=== PATIENT | female | born 1960 | race Caucasian/White ===

== ENCOUNTER 2022-02-13 09:16 | Emergency (ER) | payer SELFPAY ==
[2022-02-13 09:28] VITALS: BP 133/63; PULSE 77; RESP 16; TEMP 36.7; O2SAT 98
--- NOTE | 2022-02-13 09:49 | ED.URI ---
HPI - URI/Sore Throat General Chief Complaint: Upper Respiratory Infection Stated Complaint: Coughing, Fever, Body Aches Time Seen by Provider: 02/13/22 09:50 Source: patient and RN notes reviewed Mode of arrival: ambulatory Limitations: no limitations History of Present Illness HPI Narrative: 61-year-old female presents to the [facility] with cough, fever, body aches, sore throat, sinus congestion for 2 days. Has taken [place], ibuprofen with minimal relief. Denies any medical or surgical history. Does not have a primary care provider Related Data Home Medications Medication Instructions Recorded Confirmed latanoprost 0.005 % eye drops 1 drp EACH EYE DAILY 02/13/22 02/13/22 Allergies Allergy/AdvReac Type Severity Reaction Status Date / Time No Known Allergies Allergy Unknown Unverified 02/13/22 10:04 Review of Systems Review of Systems: All systems reviewed & are unremarkable except as noted in HPI and below Constitutional: Constitutional: Reports as per HPI, Reports body ache(s), Reports chills, Reports fatigue, Denies fever(s) and Reports headache(s) Eyes: Eyes: Reports no additional eye complaints ENT: Reports as per HPI, Reports nasal congestion and Reports sore throat Cardiovascular: Cardiovascular: Reports no additional cardiovascular complaints Respiratory: Respiratory: Reports no additional respiratory complaints Gastrointestinal: Gastrointestinal: Reports no additional gastrointestinal complaints Musculoskeletal: Musculoskeletal: Reports no additional musculoskeletal complaints Integumentary/Breasts: Skin/Breast: Reports system reviewed and no additional complaints, except as docu Neurologic: Reports system reviewed and no additional complaints, except as documented Psychiatric: Psychiatric: Reports no additional psychiatric complaints Allergic/Immunologic: Allergic/Immunologic: Reports no additional allergic/immunologic complaints [facility] Past Medical History Medical History (Updated 02/13/22 @ 10:24 by Kaykay Murphy APRN) Patient denies medical problems Surgical History Surgical History (Updated 02/13/22 @ 10:24 by Kaykay Murphy APRN) No history of previous surgery Social History Social History (Updated 02/13/22 @ 10:24 by Kaykay Murphy APRN) Living arrangements: with family Gender identity (if verbalized by the patient): Female Comments At the time of my signature, I reviewed and agree with the nursing past medical, surgical, social, and family history. There is no relevant family history pertinent to the patient complaint. Exam Const: General: healthy appearing, no acute distress, alert and well nourished Nutritional Appearance: well nourished Orientation/consciousness: patient oriented x3 Limitations: no limitations HENMT: Head: normal to inspection Ears: external ears normal, TM's normal bilaterally and EAC's normal Face/Nose/Sinus: Normal external nose present, Normal nares present and Normal nasal mucous membranes and turbinates present Face and sinus: normal facial exam, sinuses nontender and face symmetric Mouth: Yes Normal oral and palatal mucosa present, Yes lip normal, Yes tongue normal, Yes oropharynx normal and Yes moist mucous membranes Throat: posterior oropharynx normal, tonsils normal, uvula midline and postnasal drainage Eyes: General: appearance normal, both eyes and all related structures Conjunctivae: conjunctivae normal Pupils: Equal, round and reactive pupils present Neck: Neck: normal visual inspection, no lymphadenopathy and no meningeal signs Chest: Chest palpation & inspection: normal inspection of the chest Resp: Effort & Inspection: normal respiratory effort and no use of accessory muscles Auscultation: clear to auscultation bilaterally, no crackles, no rales, no rhonchi and no wheezes Cardio: Rate: regular rate Rhythm: regular rhythm Skin: General skin exam: normal color Rashes: no rashes Wounds: no wounds Neuro: Gen
== END 2022-02-13 10:21 | disposition home or self-care (01) ==
PROVIDERS: Emergency Provider Nurse Practitioner
DX: U07.1 COVID-19 (principal); H40.9 Unspecified glaucoma
CPT/HCPCS: 87426; 87804; 99213; C9803; G0463

== ENCOUNTER 2023-12-16 10:31 | Emergency (ER) | payer MEDICARE, SELFPAY ==
--- NOTE | ~2023-12-16 | XR_ITS ---
XR foot LT min 3V Ordering provider: Genevieve Hartmann APRN History: . left great toe pain s/p trauma, visible swelling . Comparison: None. FINDINGS: BONES: Small bony fragment seen near to the base of the fifth metatarsal bone. Clinical evaluation fo r tenderness in the area advised. Calcaneal spur. Ossification of the insertion of the tendo Achilles. JOINT SPACES: Normal. No tarsal coalition. SOFT TISSUES: Normal. IMPRESSION: No definite acute osseous abnormality left foot. Small bony fragment near to the base of the fifth metatarsal bone. Clinical evaluation for tenderness advised Reviewed, dictated and finalized at location A. IMPRESSION: No definite acute osseous abnormality left foot. Small bony fragment near to the base of the fifth metatarsal bone. Clinical félix luation for tenderness advised
[2023-12-16 10:45] VITALS: BP 105/47; PULSE 68; RESP 18; TEMP 36.5; O2SAT 100
--- NOTE | 2023-12-16 10:45 | ED.EXTPRO ---
HPI - Extremity Problem General Chief complaint: Extremity Injury, Lower Stated complaint: Left Big Toe Pain Time Seen by Provider: 12/16/23 10:47 Source: patient, RN notes reviewed and old records reviewed Mode of arrival: ambulatory Limitations: no limitations History of Present Illness HPI Narrative: patient presents with complaints of left great toe pain. She reports that a couple of nights ago she stubbed the toe. She now has redness and swelling surrounding the nail. Pain is worse when she walks. She has not been taking anything for her symptoms. She denies other injury and trauma. She voices no other concerns or complaints at this time. She is observed ambulating with a steady gait. Related Data Home Medications Medication Instructions Recorded Confirmed latanoprost 0.005 % eye drops 1 drp EACH EYE DAILY 02/13/22 12/16/23 acetazolamide 250 mg tablet mg 12/16/23 brimonidine 0.2 % eye drops 2 drp EACH EYE DAILY 12/16/23 12/16/23 timolol maleate 0.5 % eye drops 1 drp EACH EYE BID 12/16/23 12/16/23 Allergies Allergy/AdvReac Type Severity Reaction Status Date / Time No Known Allergies Allergy Unknown Verified 12/16/23 10:43 Review of Systems Review of Systems: All systems reviewed & are unremarkable except as noted in HPI and below Constitutional: Constitutional: Reports no additional constitutional complaints ENT: Reports system reviewed and no additional complaints, except as documented Cardiovascular: Cardiovascular: Reports no additional cardiovascular complaints Respiratory: Respiratory: Reports no additional respiratory complaints Gastrointestinal: Gastrointestinal: Reports no additional gastrointestinal complaints Musculoskeletal: Musculoskeletal: Reports no additional musculoskeletal complaints and Reports as per HPI Integumentary/Breasts: Skin/Breast: Reports system reviewed and no additional complaints, except as docu and Reports as per HPI PMFSH Past Medical History Medical History Patient denies medical problems Surgical History Surgical History No history of previous surgery Social History Social History Living arrangements: with family Gender identity (if verbalized by the patient): Female Exam Const: General: cooperative, no acute distress, alert and awake Orientation/consciousness: oriented to person, oriented to place and oriented to time HENMT: Head: normal to inspection Resp: Effort & Inspection: normal respiratory effort and able to speak in complete sentences Auscultation: clear to auscultation bilaterally, no crackles, no rales, no rhonchi and no wheezes Cardio: Palpation: normal PMI Rate: regular rate Rhythm: regular rhythm Heart sounds: S1 normal heart sound present and S2 normal heart sound present Neuro: General: oriented to person, oriented to place and oriented to time Cranial nerves: Yes CN's II-XII intact bilaterally Extrem: Left lower extremity: normal capillary refill and foot Details: tenderness Location: of the great toe ( Base of great toe, and surrounding the nail), toes with normal ROM and warmth Location: of the great toe ( erythema and warmth surrounding the nail) Psych: Appearance: grossly normal Thought process: Normal thought process present Insight: Good insight present (Psych) Judgement: Good judgement present (Psych) Course Course Level of Care: Express Care Visit Vital Signs Vital signs: Vital Signs Temperature 97.7 F 12/16/23 10:45 Pulse Rate 68 12/16/23 10:45 Respiratory Rate 18 12/16/23 10:45 Blood Pressure 105/47 L 12/16/23 10:45 Pulse Oximetry 100 12/16/23 10:45 Oxygen Delivery Room Air 12/16/23 10:45 Temperature 97.7 F 12/16/23 10:46 Pulse Rate 68 12/16/23 10:46 Respiratory Rate 18 12/16/23 10:46 Blood Pressure 105/47 L
[2023-12-16 10:46] VITALS: BP 105/47; PULSE 68; RESP 18; TEMP 36.5; O2SAT 100
== END 2023-12-16 11:55 | disposition home or self-care (01) ==
PROVIDERS: Emergency Provider Nurse Practitioner Family; PCP Nurse Practitioner
DX: L60.0 Ingrowing nail (principal); S99.922A Unspecified injury of left foot, initial encounter; X58.XXXA Exposure to other specified factors, initial encounter
CPT/HCPCS: 73630; 99213; G0463

== ENCOUNTER 2024-04-26 09:56 | Emergency (ER) | payer MEDICARE, SELFPAY ==
--- NOTE | 2024-04-26 10:05 | ED_ITS ---
HPI - URI/Sore Throat General Chief Complaint: Upper Respiratory Infection Stated Complaint: sinus issues Time Seen by Provider: 04/26/24 10:05 Source: patient, RN notes reviewed and old records reviewed Mode of arrival: ambulatory Limitations: no limitations History of Present Illness HPI Narrative: 63-year-old female presents to the [facility] with with concerns of sinus congestion. Patient reports 4 days ago started with some ear fullness, discomfort. States that it turned into some postnasal drainage, sinus congestion. Has also been coughing. Patient reports taking Tylenol, Motrin, Mucinex and Sudafed. Denies fevers. Onset (ago): day(s) (4) Treatments prior to arrival: acetaminophen, ibuprofen and cold medicine Related Data Home Medications ?Medication ?Instructions ?Recorded ?Confirmed ?Last Taken ?Type latanoprost 0.005 % eye drops 1 drp EACH EYE DAILY 02/13/22 04/26/24 Unknown History acetazolamide 250 mg tablet mg 12/16/23 Unknown History brimonidine 0.2 % eye drops 2 drp EACH EYE DAILY 12/16/23 04/26/24 Unknown History timolol maleate 0.5 % eye drops 1 drp EACH EYE BID 12/16/23 04/26/24 Unknown History cyclobenzaprine 10 mg tablet mg 04/26/24 Unknown History Allergies Allergy/AdvReac Type Severity Reaction Status Date / Time No Known Allergies Allergy Unknown Verified 04/26/24 10:02 Review of Systems Review of Systems: All systems reviewed & are unremarkable except as noted in HPI and below Constitutional: Constitutional: Reports no additional constitutional complaints ENT: Reports as per HPI, Reports nasal congestion, Reports nasal discharge and Reports post nasal drip Cardiovascular: Cardiovascular: Reports no additional cardiovascular complaints, Denies chest pain and Denies dyspnea Respiratory: Respiratory: Reports as per HPI, Denies chest congestion, Reports cough and Denies dyspnea Musculoskeletal: Musculoskeletal: Reports no additional musculoskeletal complaints Integumentary/Breasts: Skin/Breast: Reports system reviewed and no additional complaints, except as docu PMFSH Past Medical History Medical History Patient denies medical problems Surgical History Surgical History No history of previous surgery Social History Social History Living arrangements: with family Gender identity (if verbalized by the patient): Female Comments At the time of my signature, I reviewed and agree with the nursing past medical, surgical, social, and family history. There is no relevant family history pertinent to the patient complaint. Exam Const: General: cooperative, healthy appearing, comfortable, no acute distress, well developed, alert and well nourished Nutritional Appearance: well nourished Orientation/consciousness: patient oriented x3 Limitations: no limitations HENMT: Head: normal to inspection Ears: hearing grossly normal bilaterally, external ears normal, TM's normal bilaterally, EAC's normal, mastoids normal and no periauricular adenopathy Face/Nose/Sinus: Normal external nose present, Normal nasal mucous membranes and turbinates present and Nasal discharge present clear bilateral Face and sinus: normal facial exam and face symmetric Mouth: Yes Normal oral and palatal mucosa present, Yes lip normal, Yes tongue normal and Yes moist mucous membranes Throat: posterior oropharynx normal, uvula midline, postnasal drainage and no uvular edema Eyes: General: appearance normal, both eyes and all related structures Alignment and Position: alignment normal Neck: Neck: normal visual inspection, full ROM, no lymphadenopathy and no meningeal signs Chest: Chest palpation & inspection: normal inspection of the chest Resp: Effort & Inspection: normal respiratory effort and able to speak in complete sentences Auscultation: clear to auscultation bilaterally, no crackles, no rales, no rhonchi and no wheezes Cardio: Rate: regular rate Skin: General skin exam: normal color and no rashes or lesions noted Neuro: General: patient oriented x3, gait normal, moves all extremities and no meningeal signs Cognition (Neuro): normal cognition Speech: normal speech Gait exam (Neuro): Normal gait present Extrem: General: normal to inspection, full ROM, capillary refill normal and normal gait Psych: Appearance: grossly normal and well kempt Mental Status: mental status grossly normal Speech and movement: Normal speech and movement present and Clear speech present Affect: normal affect Attitude: cooperative Course Course Level of Care: Express Care Visit Vital Signs Vital signs: Vital Signs Temperature 97.2 F L 04/26/24 10:06 Pulse Rate 82 04/26/24 10:06 Respiratory Rate 18 04/26/24 10:06 Blood Pressure 142/58 H 04/26/24 10:06 Pulse Oximetry 100 04/26/24 10:06 Oxygen Delivery Room Air 04/26/24 10:06 Temperature 97.2 F L 04/26/24 10:06 Pulse Rate 82 04/26/24 10:06 Respiratory Rate 18 04/26/24 10:06 Blood Pressure 142/58 H 04/26/24 10:06 Pulse Oximetry 100 04/26/24 10:06 Oxygen Delivery Room Air 04/26/24 10:06 Reviewed MDM - URI/Sore Throat MDM Narrative Medical decision making narrative: Patient sitting comfortably in exam room. Nontoxic, vitals stable. Patient presents with 4 day history of ear fullness, postnasal drainage, sinus congestion and a cough. No acute findings other than postnasal drainage noted on exam. Clear sinus drainage. Offered flu and COVID testing, patient declined Patient is appropriate for outpatient treatment of viral for sinusitis with close follow-up Discharge instructions reviewed with patient, as well as provided in writing per nursing staff. The instructions also include specific and strict return/GO TO THE ER as well as f/u information. All questions have been answered, and the patient deny any further questions with discharge and discharge plan. Some parts of this dictation were generated by voice recognition software and may contain typographical and/or grammatical inaccuracies. Differential Diagnosis Differential diagnosis: Likely upper respiratory infection, otitis media, sinusitis and viral infection Critical Care Time Critical Care Time Critical Care Time: No Discharge Plan Discharge Clinical Impression: PND (post-nasal drip) Sinusitis Qualifiers: Sinusitis location: unspecified location Chronicity: acute Recurrence: not specified as recurrent Qualified Code(s): J01.90 - Acute sinusitis, unspecified Patient Disposition: Home, Self-Care Condition: Stable Instructions: Antibiotic Form, Sinusitis (ED), Postnasal Drip (DC) Additional Instructions: Your symptoms are likely due to a viral illness, which is not treated with antibiotics. Typically viral infections last 7-10 days, can linger for couple of weeks. It is very important to treat your symptoms. Drink plenty of water, Gatorade, Pedialyte, ice pops or Jell-O. -Alternate Tylenol and Motrin per package directions for fever or pain. You can alternate every 4 hours -Antihistamine medication such as Zyrtec/Claritin/Dorita during the day can help improve symptoms. -doing daily nasal irrigations can help relieve pressure your sinuses. Things like a Neti pot -Use Flonase twice a day for 5 days then daily to help reduce the inflammation and dry up your sinuses. -You can also use Mucinex. Be sure to drink plenty of water with this medication at least 8 ounces with every dose and it is important to drink 8 to 10 glasses of water per day. Water is a natural decongestant -Eat and drink things that are easy to swallow, like tea or soup, or popsicles. -Oral rinses such as: Salt water gargles and/or may use topical anesthetic (eg. Chloraseptic spray) or lozenges to relieve dryness or throat pain). -Frequent hand washing or hand motor vehicle or caravan salesperson is one of the best ways to prevent spread of infection. -Using a vaporizer or humidifier at night will also help thin secretions and help with coughing up phlegm. -Follow up with primary care provider in 7-10 days if condition is not improving - For new or worsening symptoms go directly to the nearest ER Patient Language: Faroese Prescriptions: No Action cyclobenzaprine 10 mg tablet latanoprost 0.005 % Drops 1 drp EACH EYE DAILY acetazolamide 250 mg tablet brimonidine 0.2 % drops 2 drp EACH EYE DAILY timolol maleate 0.5 % drops 1 drp EACH EYE BID amoxicillin-pot clavulanate 875-125 mg tablet 1 tablet PO Q12H Qty: 20 0RF Follow-up/Referrals: Marcelo,MARCO Mccracken [Primary Care Provider] - 2 Weeks ([facility] care follow [facility] ) Time of Disposition: 10:26
[2024-04-26 10:06] VITALS: BP 142/58; PULSE 82; RESP 18; TEMP 36.2; O2SAT 100
--- OUTSIDE RECORDS SUMMARY | 2024-05-03 20:25 | XMS_ITS | Referral Summary ---
Author Organization [facility] Address Formerly [facility] [place] [address] Care Team Providers Care University Manager Name Role Phone Kiran Winn Primary Care Provider Encounters Date Type Department Care Team Description 04/18/2024 2:43 PM [facility] - 04/18/2024 5:17 PM [facility] Emergency [facility] Emergency Department [address] [place] [address] Abdominal pain (Primary Dx) Discharge Disposition: Discharge to home or self care from Last 3 Months Allergies No known active allergies Medications HYDROcodone-zack taminophen (NORCO) 5-325 mg per tabletIndicatio ns:Pain Take 1-2 tablets by mouth every 4 (four) hours as needed for pain (1 tablet for mild to moderate pain or 2 tablets for severe pain) Do not exceed 8 tablets/day. 6 tablet 12/14/2021 Active cyclobenzaprine (FLEXERIL) 10 mg tablet Take 1 tablet (10 mg total) by mouth 2 (two) times a day as needed for muscle spasms 20 tablet 04/18/2024 Active ketorolac (TORADOL) 10 mg tablet Take 1 tablet (10 mg total) by mouth every 6 (six) hours as needed for pain 20 tablet 04/18/2024 Active Social History Tobacco Use Types Packs/Day Years Used Date Smoking Tobacco: Never Assessed Personal Safety Answer Date Recorded Have you ever been in or are you currently in a harmful physical or emotional relationship or is someone making you feel afraid or unsafe? Denies 04/18/2024 Comments Unknown Sex and Gender Information Value Date Recorded Sex Assigned at Not on file Legal Sex Female 7:25 AM M[facility]STER Gender Identity Female 02/01/2018 12:16 PM CDT Sexual Orientation Not on file Last Filed Vital Signs Vital Sign Reading Time Taken Comments Blood Pressure 138/74 04/18/2024 11:46 AM MALTSTER Pulse 88 04/18/2024 11:46 AM [facility] Temperature 36.8 ??C (98.2 ??F) 04/18/2024 1 1:46 AM M[facility]STER Respiratory Rate 18 04/18/2024 11:4 6 AM [facility] Oxygen Saturation 100% 04/18/2024 11: 46 AM [facility] Inhaled Oxygen Concentration - - Weight 90.6 kg (199 lb 11.8 oz) 024 11:46 AM [facility] Height 170.2 cm (5' 7 ) 12/14/2021 9:32 AM CDT Body Mass Index 31.28 12/14/2021 9:32 AM CDT Plan of Treatment Not on file Procedures Procedure Name Priority Date/Time Associated Diagnosis Comments TROPONIN T HIGH-SENSITIVITY 4-HR Timed 04/18/2024 4:[address] CHEST PE ABDOMEN PELVIS W CONTRAST ED 04/18/2024 3:56 PM [facility] ECG 12-LEAD STAT 04/18/2024 3:22 PM [facility] TROPONIN T HIGH-SENSITIVITY 2-HOUR Timed 04/18/2024 3:20 PM [facility] URINALYSIS, MICROSCOPIC ONLY STAT 04/18/2024 12:02 PM [facility] URINE CULTURE STAT 04/18/2024 12:02 PM [facility] URINALYSIS AND REFLEX TO MICROSCOPIC AND CULTURE STAT 04/18/2024 12:02 PM [facility] TROPONIN T HIGH-SENSITIVITY SERIES (BASELINE, 2HR, 4HR, 6HR) STAT 04/18/2024 11:53 AM M[facility]STER EGFR STAT 04/18/2024 11:53 AM [facility] DIFFERENTIAL AUTO STAT 04/18/2024 11: 53 AM [facility] LIPASE STAT 04/18/2024 11:53 AM [facility] COMPREHENSIVE METABOLIC PANEL STAT 04/18/2024 11:53 AM [facility] CBC WITH AUTO DIFFERENTIAL STAT 04/18/2024 11:53 AM M[facility]STER from Last 3 Months Results * Troponin T high-sensitivity 4-hour (04/18/2024 4:24 PM MALTSTER) Trop T hs <6 <=14 ng/L Comment: Interpretive Data For further hscTnT resources including the diagnostic algorithm and an aid in interpretation, copy and paste this link: https://nrl.testcatalog.org/show/hsTrop Current Interpretive Data last revised 2020. Testing performed by: [address] [address] Trop T hs delta 0 ng/L ALAINA CHOW Comment:Testing performed by : [facility], [address] [place] [address]., [address] Trop T hs interp Insignificant ALAINA CHOW Comment:Testing performed by : [address] [address] Blood 04/18/2024 4:24 PM M[facility]STER 04/18/2024 4:31 PM M[facility]STER Andrew Sanches NP LAB BLOOD ORDERABLES Final Resul t ALAINA CHOW [address] [facility] Department [place] [address] * CT Chest PE (CTA) Abdomen Pelvis W Contrast (04/18/2024 3:56 PM MALTSTER) Anatomical Region Laterality Modality Body N/A Computed Tomogra phy 04/18/2024 4:17 PM M[facility]STER Narrative 04/18/2024 4:39 PM [facility] EXAM DESCRIPTION: CT CHEST PE (CTA) ABDOMEN PELVIS W CONTRAST REASON FOR STUDY: Abdominal pain, acute, nonlocalized ?? hx of hernias to RLQ region a few months ago. Pt reports for approx 1 week has been c/o RLQ pain that radiates down into R groin region. Pt reports last night noted pain has moved up to R flank/rib region. Endorsing nausea, denies vomiting. ? TECHNIQUE: CT angiogram of the chest with routine abdomen and pelvis performed with intravenous and ??without ??oral contrast using helical scanning technique with dynamic intravenous contrast injection. Reconstructed coronal and sagittal MPR images reviewed. All images stored on PACS. ??3D MIP images of the chest rendered on scanning unit and reviewed at time of interpretation. ?? Automated exposure control was used as a dose optimization technique for this examination. CONTRAST TYPE/DOSE: 100mL of IOVERSOL 350 MG IODINE/ML INTRAVENOUS SYRINGE ?? injected via ?? intravenous COMPARISON: CT of the chest dated 12/14/2021 FINDINGS: CHEST: No pulmonary embolism. ??No pneumothorax. ??No pleural effusions. ??No lobar. ??No pulmonary no suspicious pulmonary masses. ??Some platelike atelectasis postinflammatory calcifications are noted. ??No pathologic sized nodes of the chest. ??Postop changes of the cervical spine. ABDOMEN: Hypodense mass of the left hepatic lobe. ??This should represent a cyst based on Hounsfield units. ??No additional follow-up recommended. ??Remaining solid abdominal organs are essentially unremarkable. ??No free air, free fluid or pathologic sized nodes of the abdomen. PELVIS: Postop changes of the anterior aspect of the pelvis. ??Calcification noted. ?? Very small right groin hernia containing fat. ??Left groin hernia containing fat. ??Small periumbilical hernia containing fat. ??No free air, free fluid or pathologic sized nodes of the pelvis. ??No bowel obstruction. ??No appendicitis. Spondylosis of the spine. ??Superior endplate deformity of L5 that appears to be chronic. ?? IMPRESSION: No pulmonary embolism. No bowel obstruction or appendicitis. Very small right groin hernia containing fat. Left groin hernia containing fat. Small periumbilical hernia containing fat. ??Postoperative changes of the anterior aspect of the pelvis. THIS IS AN ELECTRONICALLY VERIFIED FINAL REPORT 04/18/2024 4:39 PM - Electronically signed by ??Mumtaz Severino M.D. JS: VINICIUS D: ??04/18/2024 4:39 PM T: ??04/18/2024 4:39 PM Report ID: [id number] Reading Location: ??[id number] Procedure Note YesilakeshiaMumtaz mason, DO - 04/18/2024 EXAM DESCRIPTION: CT CHEST PE (CTA) ABDOMEN PELVIS W CONTRAST REASON FOR STUDY: Abdominal pain, acute, nonlocalized hx of hernias to RLQ region a few months ago. Pt reports for approx 1 weekhas been c/o RLQ pain that radiates down into R groin region. Pt reports last night noted pain has moved up to R flank/rib region. Endorsing nausea,denies vomiting. TECHNIQUE: CT angiogram of the chest with routine abdomen and pelvisperformed with intravenous and without oral contrast using helical scanningtechnique with dynamic intravenous contrast injection. Reconstructed coronal and sagittal MPR images reviewed. All images stored on PACS. 3D MIP images ofthe chest rendered on scanning unit and reviewed at time of interpretation. Automated exposure control was used as a dose optimization technique forthis examination. CONTRAST TYPE/DOSE: 100mL of IOVERSOL 350 MG IODINE/ML INTRAVENOUS SYRINGE injected via intravenous COMPARISON: CT of the chest dated 12/14/2021 FINDINGS: CHEST: No pulmonary embolism. No pneumothorax. No pleural effusions. No lobar.No pulmonary no suspicious pulmonary masses. Some platelike atelectasis postinflammatory calcifications are noted. No pathologic sized nodes ofthe chest. Postop changes of the cervical spine. ABDOMEN: Hypodense mass of the left hepatic lobe. This should represent a cystbased on Hounsfield units. No additional follow-up recommended. Remainingsolid abdominal organs are essentially unremarkable. No free air, free fluid or pathologic sized nodes of the abdomen. PELVIS: Postop changes of the anterior aspect of the pelvis. Calcification noted. Very small right groin hernia containing fat. Left groin herniacontaining fat. Small periumbilical hernia containing fat. No free air, free fluidor pathologic sized nodes of the pelvis. No bowel obstruction. Noappendicitis. Spondylosis of the spine. Superior endplate deformity of L5 that appearsto be chronic. IMPRESSION: No pulmonary embolism. No bowel obstruction or appendicitis. Very small right groin hernia containing fat. Left groin herniacontaining fat. Small periumbilical hernia containing fat. Postoperative changes ofthe anterior aspect of the pelvis. THIS IS AN ELECTRONICALLY VERIFIED FINAL REPORT 04/18/2024 4:39 PM - Electronically signed by Mumtaz Severino M.D. JS: VINICIUS Report ID: [id number] Reading Location: [place] [address] Andrew Sanches NP IMG CT PROCEDURES Final Result * ECG 12 lead (04/18/2024 3:22 PM M[facility]STER) Ventricular Rate EKG/Min 68 BPM [facility] Atrial Rate 68 BPM [facility] ND-Interval (MSEC) 164 ms [facility] QRS-Interval (MSEC) 84 ms [facility] QT-Interval (MSEC) 396 ms [facility] QTc 421 ms [facility] P [place] 73 degrees [facility] R [place] 18 degrees [facility] T [place] 48 degrees [facility] Diagnosis Normal sinus rhythm Normal ECG No previous ECGs available Confirmed by SULTAN GLASS M.D. ([id number]) on 04/18/2024 6:34:23 PM [facility] 04/18/2024 3:22 PM MALTSTER 04/18/2024 6:34 PM M[facility]STER us Becky SIEGEL ECG ORDERABLES Final Result [facility] * Troponin T high-sensitivity 2-hour (04/18/2024 3:20 PM MALTSTER) Trop T hs <6 <=14 ng/L Comment: Interpretive Data For further hscTnT resources including the diagnostic algorithm and an aid in interpretation, copy and paste this link: https://nrl.testcatalog.org/show/hsTrop Current Interpretive Data last revised 2020. Testing performed by: [address] [address] Trop T hs delta See Comment ng/L ALAINA CHOW Comment: Inappropriate collection time to report a delta. Testing performed by: [address] [address] Trop T hs pct delta See Comment % ALAINA CHOW Comment: Inappropriate collection time to report a delta. Testing performed by: [address] [address] Trop T hs interp See Comment ALAINA CHOW Comment: Inappropriate collection time to report a delta. Testing performed by: [address] [address] Blood 04/18/2024 3:20 PM M[facility]STER 04/18/2024 3:29 PM M[facility]STER us Andrew Sanches NP LAB BLOOD ORDERABLES Final Resul t Performing Organization Address City/State/[facility] Co de Phone Number ALAINA [address] [facility] Department [place] [address] * (ABNORMAL) Urinalysis reflex to microscopic and culture Urine (04/18/2024 12:02 PM MALTSTER) Color, ur Straw Yellow Comment:Testing performed by : [address] [address] Clarity, ur Clear Clear ALAINA Comment:Testing performed by : [address] [address] Specific gravity, ur 1.010 1.003 - 1.030 ALAINA Comment:Testing performed by : [address] [address] pH, urine 6.5 ALAINA Comment: Interpretive Data ? Urine pH is affected by diet, medications, systemic acid-base disturbances, and renal tubular function. ??pH may affect urinary stone formation. ??For example, urine pH below 6.0 may help reduce the tendency for calcium phosphate stones and pH greater than 6.0 may reduce the tendency for uric acid stone formation. Source: [facility] Riskonnect Current Interpretive Data was last revised on 2017 Testing performed by: [address], [place]., [address] Protein, ur ql Negative Negative ALAINA Comment:Testing performed by : [address], [place]., [address] Glucose, ur ql Negative Negative ALAINA Comment:Testing performed by : [address], [place]., [address] Ketones, ur Negative Negative ALAINA Comment:Testing performed by : [address], [place]., [address] Bilirubin, ur Negative Negative ALAINA Comment:Testing performed by : [address], [place]., [address] Blood, ur Negative Negative ALAINA Comment:Testing performed by : [address], [place]., [address] Urobilinogen, ur <2.0 <2.0 mg/dL ALAINA Comment:Testing performed by : [address], [place]., [address] Nitrite, ur Negative Negative ALAINA Comment:Testing performed by : [address], [place]., [address] Leukocyte esterase, ur 2+(A) Negative ALAINA Comment:Testing performed by : [address] [address] UA reflex comment Reflex to microscopic UA will be performed. ALAINA Comment:Testing performed by : [address], [place]., [address] Urine 04/18/2024 12:0 2 PM M[facility]STER 04/18/2024 12:15 PM M[facility]STER us Andrew Sanches NP LAB MICROBIOLOGY - GENERAL ORDER CARMEN Final Result ALAINA [address] [facility] Department [place] [address] * (ABNORMAL) Urinalysis, microscopic only (04/18/2024 12:02 PM MALTSTER) WBC, ur 11-20(A) 0 - 5 /HPF Comment:Testing performed by : [address] [place]., [address] RBC, ur 0-2 0 - 2 /HPF ALAINA Comment:Testing performed by : [address] [address] Epithelial cells, squamous, ur >50(A) 0 - 5 /HPF ALAINA Comment:Testing performed by : [address] [address] Bacteria, ur Trace(A) ALAINA Comment:Testing performed by : [address] [address] Culture Reflex Comment Reflex to urine culture will be performed. ALAINA Comment:Testing performed by : [address] [address] Urine 04/18/2024 12:0 2 PM MALTSTER 04/18/2024 12:15 PM MALTSTER Andrew Sanches LAB URINE ORDERABLES Final Resul t Performing Organization Address [facility] de Phone Number [address] [place] [address] * Urine culture Urine (04/18/2024 12:02 PM MALTSTER) Report Final Report: Less than 100,000 colonies/mL (clinically insignificant growth based on current clinical standards) Comment:Testing performed by : [facility], [address] [facility] [place]., [address] Organism (CLINICALLY INSIGNIFICANT GROWTH ALAINA Urine 04/18/2024 12:0 2 PM MALTSTER 04/18/2024 4:10 PM M[facility]STER Narrative ALAINA - 04/19/2024 6:41 PM MALTSTER Urine culture reflexed based upon urinalysis results. Testing performed by [facility] Microbiology Laboratory ([phone]) Andrew Sanches LAB MICROBIOLOGY - GENERAL ORDER CARMEN Final Result Performing Organization Address City/[facility] Co de Phone Number [address] [place] [address] * Troponin T high-sensitivity series (baseline, 2hr, 4hr, 6hr) (04/18/2024 11:53 AM MALTSTER) Trop T hs 6 <=14 ng/L Comment: Interpretive Data For further hscTnT resources including the diagnostic algorithm and an aid in interpretation, copy and paste this link: https://nrl.testcatalog.org/show/hsTrop Current Interpretive Data last revised 2020. Testing performed by: [facility], [address] [place] [address]., [address] Blood 04/18/2024 11:5 3 AM MALTSTER 04/18/2024 12:15 PM MALTSTER Andrew Sanches NP LAB BLOOD ORDERABLES Final Resul t [facility] [address] [facility] Department [place] [address] * eGFR (04/18/2024 11:53 AM MALTSTER) Pathologist [facility] eGFR >90 >=60 mL/min/1. 73 m2 Comment: Interpretive Data Reference Interval Normal ?>/= 90 mL/min/1.73m2 Mildly decreased* ? 60 - 89 mL/min/1.73m2 Mildly to moderately decreased ?45 - 59 mL/min/1.73m2 Moderately to severely decreased ??30 - 44 mL/min/1.73m2 Severely decreased ?15 - 29 mL/min/1.73m2 Kidney Failure ?< 15 ??mL/min/1.73m2 *Relative to young adult level Estimated glomerular filtration rate is determined by the 2020 CKD-EPI equation recommended by the National Kidney Foundation (A Unifying Approach to GFR Estimation: Recommendations of the NKF-ASK Task Force on Reassessing the Inclusion of Race in Diagnosing Kidney Disease, JASN 2020). The CKD-EPI equation should not be used for patients with unstable renal function and has not been validated in children and those over 70. Current interpretive data was last reviewed 2021. Testing performed by: [address] [address] Blood 04/18/2024 11:5 3 AM MALTSTER 04/18/2024 12:15 PM MALTSTER us Andrew Sanches NP LAB BLOOD ORDERABLES Final Resul t ALAINA [address] [facility] Department [place] [address] * Differential, auto (04/18/2024 11:53 AM MALTSTER) Neutrophil abs 4.8 1.5 - 6.5 K/cumm Comment:Testing performed by : [address] [address] Imm gran abs 0.1 0.0 - 0.1 K/cumm ALAINA Comment:Testing performed by : [address] [address] Lymphocyte abs 2.4 0.8 - 3.3 K/cumm ALAINA Comment:Testing performed by : [address] [address] Monocyte abs 0.7 0.2 - 0.8 K/cumm ALAINA Comment:Testing performed by : [address] [address] Eosinophil abs 0.2 0.0 - 0.5 K/cumm ALAINA Comment:Testing performed by : [address] [address] Basophil abs 0.1 0.0 - 0.1 K/cumm ALAINA Comment:Testing performed by : [address] [address] Neutrophil pct 58.7 % ALAINA Comment: Interpretive Data Percent cell count reference ranges are not reported, since discordance with absolute values may lead to misinterpretation of CBC data. Current Interpretive Data was last revised on 2017. Testing performed by: [address] [address] Imm gran pct 0.6 % [facility] Comment: Interpretive Data Percent cell count reference ranges are not reported, since discordance with absolute values may lead to misinterpretation of CBC data. Current Interpretive Data was last revised on 2017. Testing performed by: [address] [address] Lymphocyte pct 28.8 % [facility] Comment: Interpretive Data Percent cell count reference ranges are not reported, since discordance with absolute values may lead to misinterpretation of CBC data. Current Interpretive Data was last revised on 2017. Testing performed by: [address] [address] Monocyte pct 8.6 % [facility] Comment: Interpretive Data Percent cell count reference ranges are not reported, since discordance with absolute values may lead to misinterpretation of CBC data. Current Interpretive Data was last revised on 2017. Testing performed by: [address] [address] Eosinophil pct 2.6 % [facility] Comment: Interpretive Data Percent cell count reference ranges are not reported, since discordance with absolute values may lead to misinterpretation of CBC data. Current Interpretive Data was last revised on 2017. Testing performed by: [address] [address] Basophil pct 0.7 % [facility] Comment: Interpretive Data Percent cell count reference ranges are not reported, since discordance with absolute values may lead to misinterpretation of CBC data. Current Interpretive Data was last revised on 2017. Testing performed by: [address] [address] Blood 04/18/2024 11:5 3 AM MALTSTER 04/18/2024 12:15 PM MALTSTER us Andrew Sanches NP LAB BLOOD ORDERABLES Final Resul t ALAINA [address] [facility] [place] [address] * CBC with auto differential (04/18/2024 11:53 AM MALTSTER) [facility] WBC 8.2 3.8 - 9.9 K/cumm Comment:Testing performed by : [address] [address] Hgb 13.5 11.9 - 15.5 g/dL ALAINA Comment:Testing performed by : [address], [address] Hct 40.8 35.6 - 45.5 % ALAINA Comment:Testing performed by : [address], [address] Plt 307 150 - 400 K/cumm ALAINA Comment:Testing performed by : [address] [address] MPV 10.0 9.1 - 12.3 fL ALAINA Comment:Testing performed by : [address], [address] RBC 4.39 3.90 - 5.20 M/cumm ALAINA Comment:Testing performed by : [address] [address] MCV 92.9 81.3 - 96.4 fL ALAINA Comment:Testing performed by : [address] [address] MCH 30.8 27.1 - 33.3 pg ALAINA Comment:Testing performed by : [address] [address] MCHC 33.1 32.3 - 35.7 g/dL ALAINA Comment:Testing performed by : [address], [address] RDW CV 12.6 11.1 - 14.9 % ALAINA Comment:Testing performed by : [address] [address] RDW SD 43.2 35.7 - 48.1 fL ALAINA Comment:Testing performed by : [address], [address] NRBC abs 0.00 0.00 - 0.01 K/cumm ALAINA Comment:Testing performed by : [address] [address] Blood (Blood, Venous) 04/18/2024 11:53 AM MALTSTER 04/18/2024 12:15 PM MALTSTER Andrew Sanches LAB BLOOD ORDERABLES Final Resul t Performing Organization Address [facility] de Phone Number [address] [address] * Lipase (04/18/2024 11:53 AM MALTSTER) [facility] Lipase 16 10 - 99 Units/L Comment:Testing performed by : [address] [address] Blood (Blood, Venous) 04/18/2024 11:53 AM MALTSTER 04/18/2024 12:15 PM MALTSTER Andrew Sanches LAB BLOOD ORDERABLES Final Resul t Performing Organization Address [facility] de Phone Number [address] [address] * (ABNORMAL) Comprehensive metabolic panel (04/18/2024 11:53 AM MALTSTER) [facility] Sodium 140 135 - 145 mmol/L Comment:Testing performed by : [address] [address] Potassium, pl 4.0 3.3 - 4.9 mmol/L ALAINA Comment:Testing performed by : [address] [address] Chloride 103 97 - 110 mmol/L ALAINA Comment:Testing performed by : [address] [address] CO2 27 22 - 32 mmol/L ALAINA Comment:Testing performed by : [address] [address] Anion gap 10 2 - 15 mmol/L ALAINA Comment:Testing performed by : [address] [address] BUN 15 6 - 25 mg/dL ALAINA Comment:Testing performed by : [address] [address] Creatinine 0.50(L) 0.60 - 1.10 mg/dL ALAINA Comment:Testing performed by : [address] [address] Glucose 95 70 - 199 mg/dL ALAINA Comment: Interpretive Data Fasting glucose >/= 126 mg/dl is diagnostic for diabetes. ?? Fasting is defined as no caloric intake for at least 8 hours. Fasting glucose between 100 mg/dl to 125 mg/dl is diagnostic of prediabetes. In a patient with classic symptoms of hyperglycemia or hyperglycemic crisis, a random glucose >/= 200 mg/dl is diagnostic for diabetes. In the absence of unequivocal hyperglycemia, results should be confirmed by repeat testing. The classification and Diagnosis of Diabetes Diabetes Care 202; 46: S19-S40. Current interpretive data was last revised 2022. Testing performed by: [address] [address] Calcium 9.4 8.5 - 10.3 mg/dL ALAINA Comment:Testing performed by : [address] [address] Bilirubin, total 0.3 0.1 - 1.2 mg/dL ALAINA Comment:Testing performed by : [address] [address] Protein, pl 6.7 6.5 - 8.5 g/dL ALAINA Comment:Testing performed by : [address] [address] Albumin 4.0 3.5 - 5.0 g/dL ALAINA Comment:Testing performed by : [address] [address] Alk phos 71 40 - 130 Units/L ALAINA Comment:Testing performed by : [address], [address] ALT 13 7 - 45 Units/L ALAINA Comment:Testing performed by : [facility], [address] [place] [address]., [address] AST 16 10 - 45 Units/L ALAINA CHOW Comment:Testing performed by : [facility], [address] [place] [address]., [address] Blood (Blood, Venous) 04/18/2024 11:53 AM MALTSTER 04/18/2024 12:15 PM MALTSTER Andrew Sanches NP LAB BLOOD ORDERABLES Final Resul t ALAINA CHOW [address] [facility] Department [place] [address] from Last 3 Months Insurance [employer] MED[employer]ARE GOLD [employer] MED[employer] GOLD Care Teams University Manager Relationship Specialty Start Date End Date Kiran Winn DO [address] [place] [address] PCP - General Family Medicine 02/01/18
--- OUTSIDE RECORDS SUMMARY | 2024-05-03 20:25 | XMS_ITS | Clinical Summary ---
Author Organization [facility] Address [facility] [place] [address] Care Team Providers Care Shingle Weaver Name Role Phone Kiran Winn Primary Care Provider Allergies No known active allergies Medications HYDROcodone-zack [...] needed for pain 20 tablet 04/18/2024 Active Encounters Date Type Department Care Team Description 04/18/2024 2:43 PM STRAW BOSS - 04/18/2024 5:17 PM [facility] Emergency [facility] Emergency Department [facility] [place], [place] [id number] Abdominal pain (Primary Dx) Discharge Disposition: Discharge to home or self care from Last 3 Months Social History Tobacco Use Types Packs/Day Years [...] on file Legal Sex Female 7:25 AM STRAW BOSS Gender Identity Female 02/01/2018 12:16 PM CDT Sexual Orientation Not on file Obstetrics History Last Filed Vital Signs Vital Sign Reading Time Taken Comments Blood Pressure 138/74 04/18/2024 11:46 AM STR[facility] BOSS Pulse 88 04/18/2024 11:46 AM STR[facility] BOSS Temperature 36.8 ??C (98.2 ??F) 04/18/2024 1 1:46 AM STRAW BOSS Respiratory Rate 18 04/18/2024 11:4 6 AM STRAW BOSS Oxygen Saturation 100% 04/18/2024 11: 46 AM STR[facility] BOSS Inhaled Oxygen Concentration - - Weight 90.6 kg (199 lb 11.8 oz) 024 11:46 AM STRAW BOSS Height 170.2 cm (5' 7 ) 12/14/2021 9:32 AM CDT Body Mass Index 31.28 12/14/2021 9:32 AM CDT Plan of Treatment Health Maintenance Due Date Last Done Comments Cervical Cancer Screening 1960 Colon Cancer Screening-Colonoscopy 1958 Depression Screening 1958 Fall Risk Assessment 1960 Hepatitis C Screening 1960 DTaP/Tdap/Td Vaccine (1 - Tdap) 1969 Hepatitis B Screening 1976 Zoster Vaccine (1 of 2) 2008 Breast Cancer Screening-Mammogram 05/05/2023 05/05/2022, 05/05/2022, 11/02/2018, Additional history exists Pneumococcal vaccine 65+ (1 of 1 - PCV) 10/02/2023 Well Visit 65+ 10/02/2023 Influenza Vaccine (#1) 2023 Osteoporosis Screening-Bone Density Scan 05/05/2024 05/05/2022 Procedures Procedure Name Priority Date/Time Associated Diagnosis Comments TROPONIN T HIGH-SENSITIVITY 4-HR Timed 04/18/2024 4:[address] CHEST PE ABDOMEN PELVIS W CONTRAST ED 04/18/2024 3:56 PM STRAW BOSS ECG 12-LEAD STAT 04/18/2024 3:22 PM [facility]OSS TROPONIN T HIGH-SENSITIVITY 2-HOUR Timed 04/18/2024 3:20 PM [facility] URINALYSIS, MICROSCOPIC ONLY STAT 04/18/2024 12:02 PM [facility] URINE CULTURE STAT 04/18/2024 12:02 PM [facility] URINALYSIS AND REFLEX TO MICROSCOPIC AND CULTURE STAT 04/18/2024 12:02 PM [facility] TROPONIN T HIGH-SENSITIVITY SERIES (BASELINE, 2HR, 4HR, 6HR) STAT 04/18/2024 11:53 AM STRAW BOSS EGFR STAT 04/18/2024 11:53 AM [facility] BOSS DIFFERENTIAL AUTO STAT 04/18/2024 11: 53 AM STR[facility] BOSS LIPASE STAT 04/18/2024 11:53 AM [facility] BOSS COMPREHENSIVE METABOLIC PANEL STAT 04/18/2024 11:53 AM STRAW BOSS CBC WITH AUTO DIFFERENTIAL STAT 04/18/2024 11:53 AM STRAW BOSS from Last 3 Months Results * Troponin T high-sensitivity 4-hour (04/18/2024 4:24 PM STRAW BOSS) Trop T hs <6 <=14 ng/L Comment: Interpretive Data For further hscTnT resources including the diagnostic algorithm and an aid in interpretation, copy and paste this link: https://nrl.testcatalog.org/show/hsTrop Current Interpretive Data last revised 2020. Testing performed by: [address] [address] Trop T hs delta 0 ng/L ALAINA CHOW Comment:Testing performed by : [address] [address] Trop T hs interp Insignificant ALAINA CHOW Comment:Testing performed by : [address] [address] Blood 04/18/2024 4:24 PM STRAW BOSS 04/18/2024 4:31 PM STRAW BOSS us Andrew Sanches NP LAB BLOOD ORDERABLES Final Resul t ALAINA MH [address] [facility] Department [place] [address] * CT Chest PE (CTA) Abdomen Pelvis W Contrast (04/18/2024 3:56 PM STRAW BOSS) Anatomical Region Laterality Modality Body N/A Computed Tomogra phy 04/18/2024 4:17 PM STRAW BOSS Narrative 04/18/2024 4:39 PM STRAW BOSS EXAM DESCRIPTION: CT CHEST PE (CTA) ABDOMEN [...] PM T: ??04/18/2024 4:39 PM Report ID: [id number] Reading Location: ??[id number] Procedure Note Mumtaz Severino, DO - 04/18/2024 EXAM DESCRIPTION: CT CHEST [...] Mumtaz Severino M.D. JS: VINICIUS Report ID: [id number] Reading Location: [place] [address] Andrew Sanches NP IMG CT PROCEDURES Final Result * ECG 12 lead (04/18/2024 3:22 PM STRAW BOSS) Ventricular Rate EKG/Min 68 BPM [facility] Atrial Rate 68 BPM [facility] MN-Interval (MSEC) 164 ms [facility] QRS-Interval (MSEC) 84 ms [facility] QT-Interval (MSEC) 396 ms [facility] QTc 421 ms [facility] P [place] 73 degrees [facility] R [place] 18 degrees [facility] T [place] 48 degrees [facility] Diagnosis Normal sinus rhythm Normal ECG No previous ECGs available Confirmed by SULTAN GLASS M.D. ([id number]) on 04/18/2024 6:34:23 PM [facility] 04/18/2024 3:22 PM STR[facility] BOSS 04/18/2024 6:34 PM STR[facility] BOSS us Becky Waterman PA ECG ORDERABLES Final Result [facility] * Troponin T high-sensitivity 2-hour (04/18/2024 3:20 PM STRAW BOSS) Trop T hs <6 <=14 ng/L Comment: Interpretive Data For further hscTnT resources including the diagnostic algorithm and an aid in interpretation, copy and paste this link: https://nrl.testcatalog.org/show/hsTrop Current Interpretive Data last revised 2020. Testing performed by: [address] [address] Trop T hs delta See Comment ng/L ALAINA CHOW Comment: Inappropriate collection time to report a delta. Testing performed by: [address] [address] Trop T hs pct delta See Comment % ALAINA Comment: Inappropriate collection time to report a delta. Testing performed by: [address] [address] Trop T hs interp See Comment ALAINA Comment: Inappropriate collection time to report a delta. Testing performed by: [address] [address] Blood 04/18/2024 3:20 PM [facility] 04/18/2024 3:29 PM STR[facility]OSS us Andrew Sanches NP LAB BLOOD ORDERABLES Final Resul t ALAINA [address] [facility] Department [place] [address] * (ABNORMAL) Urinalysis reflex to microscopic and culture Urine (04/18/2024 12:02 PM STRAW BOSS) Color, ur Straw Yellow Comment:Testing performed by : [address] [address] Clarity, ur Clear Clear ALAINA Comment:Testing performed by : [address] [address] Specific gravity, ur 1.010 1.003 - 1.030 ALAINA Comment:Testing performed by : [address], [place]., [address] pH, urine 6.5 ALAINA Comment: Interpretive Data ? Urine pH is affected by diet, medications, systemic acid-base disturbances, and renal tubular function. ??pH may affect urinary stone formation. ??For example, urine pH below 6.0 may help reduce the tendency for calcium phosphate stones and pH greater than 6.0 may reduce the tendency for uric acid stone formation. Source: [facility] [place] Current Interpretive Data was last revised on 2017 Testing performed by: [address] [address] Protein, ur ql Negative Negative ALAINA Comment:Testing performed by : [address] [address] Glucose, ur ql Negative Negative ALAINA Comment:Testing performed by : [address] [address] Ketones, ur Negative Negative ALAINA Comment:Testing performed by : [address] [address] Bilirubin, ur Negative Negative ALAINA Comment:Testing performed by : [address] [address] Blood, ur Negative Negative ALAINA Comment:Testing performed by : [address] [address] Urobilinogen, ur <2.0 <2.0 mg/dL ALAINA Comment:Testing performed by : [address] [address] Nitrite, ur Negative Negative ALAINA Comment:Testing performed by : [address] [address] Leukocyte esterase, ur 2+(A) Negative ALAINA Comment:Testing performed by : [address] [address] UA reflex comment Reflex to microscopic UA will be performed. ALAINA Comment:Testing performed by : [address] [address] Urine 04/18/2024 12:0 2 PM STR[facility] BOSS 04/18/2024 12:15 PM STR[facility]OSS Andrew Sanches NP LAB MICROBIOLOGY - GENERAL ORDER CARMEN Final Result Performing Organization Address [facility] Co de Phone Number ALAINA [address] [place] [address] * (ABNORMAL) Urinalysis, microscopic only (04/18/2024 12:02 PM STRAW BOSS) WBC, ur 11-20(A) 0 - 5 /HPF Comment:Testing performed by : [address] [address] RBC, ur 0-2 0 - 2 /HPF ALAINA Comment:Testing performed by : [address] [address] Epithelial cells, squamous, ur >50(A) 0 - 5 /HPF ALAINA Comment:Testing performed by : [address] [address] Bacteria, ur Trace(A) ALAINA Comment:Testing performed by : [address] [address] Culture Reflex Comment Reflex to urine culture will be performed. ALAINA Comment:Testing performed by : [address] [address] Urine 04/18/2024 12:0 2 PM STR[facility] BOSS 04/18/2024 12:15 PM [facility]OSS Andrew Sanches NP LAB URINE ORDERABLES Final Resul t Performing Organization Address [facility] Co de Phone Number ALAINA [facility] [place] [address] * Urine culture Urine (04/18/2024 12:02 PM STRAW BOSS) Report Final Report: Less than 100,000 colonies/mL (clinically insignificant growth based on current clinical standards) Comment:Testing performed by : [facility], [address] [place]., [address] Organism (CLINICALLY INSIGNIFICANT GROWTH ALAINA Urine 04/18/2024 12:0 2 PM STRAW BOSS 04/18/2024 4:10 PM STR[facility] BOSS Narrative ALAINA - 04/19/2024 6:41 PM STRAW BOSS Urine culture reflexed based upon urinalysis results. Testing performed by [facility] Microbiology Laboratory ([phone]) Andrew Sanches LAB MICROBIOLOGY - GENERAL ORDER CARMEN Final Result Performing Organization Address [facility] de Phone Number LISANDRO[address] [place] [address] * Troponin T high-sensitivity series (baseline, 2hr, 4hr, 6hr) (04/18/2024 11:53 AM STRAW BOSS) Pathologist [facility] Trop T hs 6 <=14 ng/L Comment: Interpretive Data For further hscTnT resources including the diagnostic algorithm and an aid in interpretation, copy and paste this link: https://nrl.testcatalog.org/show/hsTrop Current Interpretive Data last revised 2020. Testing performed by: [facility], [address] [place] [address]., [address] Blood 04/18/2024 11:5 3 AM STRAW BOSS 04/18/2024 12:15 PM STRAW BOSS Andrew Sanches LAB BLOOD ORDERABLES Final Resul t Performing Organization Address [facility] Co de Phone Number [address] [place] [address] * eGFR (04/18/2024 11:53 AM STRAW BOSS) [facility] eGFR >90 >=60 mL/min/1. 73 m2 Comment: [...] was last reviewed 2021. Testing performed by: [address] [address] Blood 04/18/2024 11:5 3 AM STRAW BOSS 04/18/2024 12:15 PM STRAW BOSS us Andrew Sanches NP LAB BLOOD ORDERABLES Final Resul t ALAINA [address] [facility] Department [place] [address] * Differential, auto (04/18/2024 11:53 AM STRAW BOSS) Neutrophil abs 4.8 1.5 - 6.5 K/cumm Comment:Testing performed by : [address] [address] Imm gran abs 0.1 0.0 - 0.1 K/cumm ALAINA CHOW Comment:Testing performed by : [address] [address] Lymphocyte abs 2.4 0.8 - 3.3 K/cumm ALAINA CHOW Comment:Testing performed by : [address] [address] Monocyte abs 0.7 0.2 - 0.8 K/cumm ALAINA Comment:Testing performed by : [address] [address] Eosinophil abs 0.2 0.0 - 0.5 K/cumm [facility] Comment:Testing performed by : [address], [place]., [address] Basophil abs 0.1 0.0 - 0.1 K/cumm [facility] Comment:Testing performed by : [address] [address] Neutrophil pct 58.7 % [facility] Comment: Interpretive Data Percent cell count reference ranges are not reported, since discordance with absolute values may lead to misinterpretation of CBC data. Current Interpretive Data was last revised on 2017. Testing performed by: [address] [address] Imm gran pct 0.6 % [facility] Comment: Interpretive Data Percent cell count reference ranges are not reported, since discordance with absolute values may lead to misinterpretation of CBC data. Current Interpretive Data was last revised on 2017. Testing performed by: [address] [address] Lymphocyte pct 28.8 % [facility] Comment: Interpretive Data Percent cell count reference ranges are not reported, since discordance with absolute values may lead to misinterpretation of CBC data. Current Interpretive Data was last revised on 2017. Testing performed by: [address] [address] Monocyte pct 8.6 % [facility] Comment: Interpretive Data Percent cell count reference ranges are not reported, since discordance with absolute values may lead to misinterpretation of CBC data. Current Interpretive Data was last revised on 2017. Testing performed by: [address] [address] Eosinophil pct 2.6 % [facility] Comment: Interpretive Data Percent cell count reference ranges are not reported, since discordance with absolute values may lead to misinterpretation of CBC data. Current Interpretive Data was last revised on 2017. Testing performed by: [address] [address] Basophil pct 0.7 % ALAINA CHOW Comment: Interpretive Data Percent cell count reference ranges are not reported, since discordance with absolute values may lead to misinterpretation of CBC data. Current Interpretive Data was last revised on 2017. Testing performed by: [address] [address] Blood 04/18/2024 11:5 3 AM STRAW BOSS 04/18/2024 12:15 PM STRAW BOSS us Andrew Sanches NP LAB BLOOD ORDERABLES Final Resul t ALAINA CHOW [address] [place] [address] Department [place] [address] * CBC with auto differential (04/18/2024 11:53 AM STRAW BOSS) WBC 8.2 3.8 - 9.9 K/cumm Comment:Testing performed by : [address] [address] Hgb 13.5 11.9 - 15.5 g/dL ALAINA CHOW Comment:Testing performed by : [address] [address] Hct 40.8 35.6 - 45.5 % ALAINA CHOW Comment:Testing performed by : [address] [address] Plt 307 150 - 400 K/cumm ALAINA CHOW Comment:Testing performed by : [address] [address] MPV 10.0 9.1 - 12.3 fL ALAINA CHOW Comment:Testing performed by : [address] [address] RBC 4.39 3.90 - 5.20 M/cumm ALAINA CHOW Comment:Testing performed by : [address] [address] MCV 92.9 81.3 - 96.4 fL ALAINA CHOW Comment:Testing performed by : [address] [address] MCH 30.8 27.1 - 33.3 pg ALAINA CHOW Comment:Testing performed by : [address] [address] MCHC 33.1 32.3 - 35.7 g/dL ALAINA CHOW Comment:Testing performed by : [address], [address] RDW CV 12.6 11.1 - 14.9 % ALAINA CHOW Comment:Testing performed by : [address], [address] RDW SD 43.2 35.7 - 48.1 fL ALAINA CHOW Comment:Testing performed by : [address], [address] NRBC abs 0.00 0.00 - 0.01 K/cumm ALAINA CHOW Comment:Testing performed by : [address], [address] Blood (Blood, Venous) 04/18/2024 11:53 AM STRAW BOSS 04/18/2024 12:15 PM STRAW BOSS Andrew Sanches NP LAB BLOOD ORDERABLES Final Resul t Performing Organization Address [facility] Co de Phone Number [address] [place] [address] * Lipase (04/18/2024 11:53 AM STRAW BOSS) Lipase 16 10 - 99 Units/L Comment:Testing performed by : [address], [address] Blood (Blood, Venous) 04/18/2024 11:53 AM STRAW BOSS 04/18/2024 12:15 PM STRAW BOSS Andrew Sanches NP LAB BLOOD ORDERABLES Final Resul t Performing Organization Address City[facility] Co de Phone Number [address] [place] [address] * (ABNORMAL) Comprehensive metabolic panel (04/18/2024 11:53 AM STRAW BOSS) Sodium 140 135 - 145 mmol/L Comment:Testing performed by : [address] [address] Potassium, pl 4.0 3.3 - 4.9 mmol/L ALAINA Comment:Testing performed by : [address] [address] Chloride 103 97 - 110 mmol/L [facility] Comment:Testing performed by : [address], [place]., [address] CO2 27 22 - 32 mmol/L [facility] Comment:Testing performed by : [address] [address] Anion gap 10 2 - 15 mmol/L [facility] Comment:Testing performed by : [address], [place]., [address] BUN 15 6 - 25 mg/dL [facility] Comment:Testing performed by : [address] [address] Creatinine 0.50(L) 0.60 - 1.10 mg/dL [facility] Comment:Testing performed by : [address] [address] Glucose 95 70 - 199 mg/dL [facility] Comment: Interpretive Data Fasting glucose >/= 126 [...] was last revised 2022. Testing performed by: [address] [address] Calcium 9.4 8.5 - 10.3 mg/dL [facility] Comment:Testing performed by : [address] [address] Bilirubin, total 0.3 0.1 - 1.2 mg/dL ALAINA Comment:Testing performed by : [address] [address] Protein, pl 6.7 6.5 - 8.5 g/dL ALAINA Comment:Testing performed by : [address] [address] Albumin 4.0 3.5 - 5.0 g/dL ALAINA Comment:Testing performed by : [address] [address] Alk phos 71 40 - 130 Units/L ALAINA Comment:Testing performed by : [address] [address] ALT 13 7 - 45 Units/L ALAINA Comment:Testing performed by : [address] [address] AST 16 10 - 45 Units/L ALAINA Comment:Testing performed by : [address] [address] Blood (Blood, Venous) 04/18/2024 11:53 AM STRAW BOSS 04/18/2024 12:15 PM STRAW BOSS Andrew Sanches NP LAB BLOOD ORDERABLES Final Resul t ALAINA [address] [facility] Department of Laboratories [place], [place] [id number] from Last 3 Months Insurance T[employer] MEDICARE GOLD [employer] MEDICARE GOLD Care Teams Shingle Weaver Relationship Specialty Start Date End Date Kiran Winn [place] [address] [place] [address] PCP - General Family Medicine 02/01/18
--- OUTSIDE RECORDS SUMMARY | 2024-05-03 20:26 | XMS_ITS | Encounter Summary ---
Author Organization [facility] Address [address] [place] [address] Care Team Providers Care Neurologist Name Role Phone Kiran Winn DO Primary Care Provider Encounter Details Date Type Department Care Team (Late st Contact Info) Description 06/30/2023 External Device Data [facility] ABSTRACTION Provider, Abstract NO ADDRESS ON FILE Social History Tobacco Use Types Packs/Day Years Used Date Smoking Tobacco: Never Smokeless Tobacco: Never Alcohol Use Standard Drinks/Week Comments No 0 (1 standard drink = 0.6 oz pur e alcohol) Sex and Gender Information Value Date Recorded Sex Assigned at Not on file Gender Identity Not on file Sexual Orientation Not on file documented as of this encounter Plan of Treatment Not on file documented as of this encounter Visit Diagnoses Not on filedocumented in this encounter Care Teams Neurologist Relationship Specialty Start Date End Date Kiran Winn DO [address] [place] [address] PCP - General Family Practice 07/15/16 documented as of this encounter
--- OUTSIDE RECORDS SUMMARY | 2024-05-03 20:26 | XMS_ITS | Encounter Summary ---
Author Organization [facility] Address [address] [place] [address] Care Team Providers Care Manager Plan Name Role Phone Kiran Winn DO Primary Care Provider Encounter Details Date Type Department Care Team (Late st Contact Info) Description 04/21/2023 External Device Data STL ABSTRACTION Provider, Abstract [...] on filedocumented in this encounter Care Teams Manager Plan Relationship Specialty Start Date End Date Kiran Winn DO [address] [place] [address] PCP - General Family Practice 07/15/16 documented as of this encounter
--- OUTSIDE RECORDS SUMMARY | 2024-05-03 20:26 | XMS_ITS | Encounter Summary ---
Author Organization [facility] Address [address] [place] [address] Care Team Providers Care Environmental Adviser Name Role Phone Kiran Winnjose antoniochapincito Primary Care Provider Encounter Details Date Type Department Care Team (Late st Contact Info) Description 08/04/2022 4:35 PM CDT Ancillary Procedure [facility] Orthopedic Trauma Surgery - [place] [address] [place] [address] Collin Jenkins MD [address] [place] [address] Hand pain, right Social History Tobacco Use Types Packs/Day Years Used Date Smoking Tobacco: Never Smokeless Tobacco: Never Alcohol Use Standard Drinks/Week Comments No 0 (1 standard drink = 0.6 oz pur e alcohol) Sex and Gender Information Value Date Recorded Sex Assigned at Not on file Gender Identity Not on file Sexual Orientation Not on file COVID-19 Exposure Response Date Recorded In the last 10 days, have yo u been in contact with someone who was confirmed or suspected to have Coronavirus/COVID-19? 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
--- OUTSIDE RECORDS SUMMARY | 2024-05-03 20:26 | XMS_ITS | Encounter Summary ---
Author Organization [facility] Healthcare Address [address] [place] [address] Care Team Providers Care Wafer Fabricator Name Role Phone Kiran Winn DO Primary Care Provider Encounter Details Date Type Department Care Team (Late st Contact Info) Description 12/17/2021 Telephone [facility] Emergency Department [address] [place] [address] Kunal Sherwood RN Social History Tobacco Use Types Packs/Day Years Used Date Smoking Tobacco: Never Assessed Comments Unknown Sex and Gender Information Value Date Recorded Sex Assigned at Not on file Legal Sex Female 7:25 AM HOSPITAL WARD CLERK Gender Identity Female 02/01/2018 12:16 PM CDT Sexual Orientation Not on file documented as of this encounter ED Notes * Kunal Sherwood RN - 12/17/2021 2:03 PM CDT ED Provider requested ED RN Coordinators to follow-up on condition and help with follow-up. Spoke with patient, patient verified name and date. Patient reports she is working on setting up follow up. Declined assistance at this time. Patient denies other questions or concerns. Kunal Sherwood RN 12/17/21 1406 documented in this encounter Plan of Treatment Not on file documented as of this encounter Visit Diagnoses Not on filedocumented in this encounter Care Teams Wafer Fabricator Relationship Specialty Start Date End Date Kiran Winn DO [address] [place] [address] PCP - General Family Medicine 02/01/18 documented as of this encounter
--- OUTSIDE RECORDS SUMMARY | 2024-05-03 20:26 | XMS_ITS | Encounter Summary ---
Author Organization [facility] Healthcare Address [address] [place] [address] Care Team Providers Care Home Energy Inspector Name Role Phone Kiran Winn Primary Care Provider Reason for Visit * Reason Comments Flank Pain Abdominal Pain Encounter Details Date Type Department Care Team ([facility] st Contact Info) Description 04/18/2024 2:43 PM CREATIVE ARTS MUSIC THERAPIST - 04/18/2024 5:17 PM [facility] Emergency Department [facility] [place] [address] Abdominal pain (Primary Dx) Discharge Disposition: Discharge to home or self care Social History Tobacco Use Types Packs/Day Years [...] on file Legal Sex Female 7:25 AM CREATIVE ARTS MUSIC THERAPIST Gender Identity Female 02/01/2018 12:16 PM CDT Sexual Orientation Not on file documented as of this encounter Last Filed Vital Signs Vital Sign Reading Time Taken Comments Blood Pressure 138/74 04/18/2024 11:46 AM CREATIVE ARTS MUSIC THERAPIST Pulse 88 04/18/2024 11:46 AM CREATIVE ARTS MUSIC THERAPIST Temperature 36.8 ??C (98.2 ??F) 04/18/2024 1 1:46 AM CREATIVE ARTS MUSIC THERAPIST Respiratory Rate 18 04/18/2024 11:4 6 AM CREATIVE ARTS MUSIC THERAPIST Oxygen Saturation 100% 04/18/2024 11: 46 AM CREATIVE ARTS MUSIC THERAPIST Inhaled Oxygen Concentration - - Weight 90.6 kg (199 lb 11.8 oz) 024 11:46 AM CREATIVE ARTS MUSIC THERAPIST Height - - Body Mass Index 31.28 12/14/2021 9:32 AM CDT documented in this encounter Discharge Instructions * Discharge Instructions* Becky Waterman PA - 04/18/2024 5:03 PM CREATIVE ARTS MUSIC THERAPIST Thank you for allowing us to take care of you at [facility]. Please follow up with your primary care physician or specialist, as soon as possible, and ideally within 7 days. Please take any new medications as prescribed. Please return to the emergency department for worsening of your symptoms or any new problems which may arise. It is mandatory that you follow up, as recommended, with a primary care physician or specialist, per your discharge paperwork.You have received emergency care only at your visit today, an this is nota substitute for ongoing care, further evaluation, or treatment. Therefore, follow-up as directed is not optional, but mandatory. This ensures that any incidental abnormal radiographic and laboratoryfindings are evaluated appropriately. Return immediately for any new symptoms, worsening of symptoms, or persistent symptoms. We are open17/11 and will take care of you. Please follow up with your general surgeon in your primary care provider within the next week. TIVE ARTS MUSIC THERAPIST * Attachments The following attachments cannot be sent through Care Everywhere. * Abdominal Pain (AfterCare(R) Instructions(ER/ED)) ([place]) documented in this encounter Medications at Time of Discharge cyclobenzaprine (FLEXERIL) 10 mg tablet Take 1 tablet (10 mg total) by mouth 2 (two) times a day as needed for muscle spasms 20 tablet 04/18/2024 HYDROcodone-aceta minophen (NORCO) 5-325 mg per tabletIndications :Pain Take 1-2 tablets by mouth every 4 (four) hours as needed for pain (1 tablet for mild to moderate pain or 2 tablets for severe pain) Do not exceed 8 tablets/day. 6 tablet 12/14/2021 ketorolac (TORADOL) 10 mg tablet Take 1 tablet (10 mg total) by mouth every 6 (six) hours as needed for pain 20 tablet 04/18/2024 documented as of this encounter Ordered Prescriptions Prescription Sig Dispense Quantity Refills Last Filled Start Date End Date ketorolac (TORADOL) 10 mg tablet Take 1 tablet (10 mg total) by mouth every 6 (six) hours as needed for pain 20 tablet 04/18/2024 cyclobenzaprine (FLEXERIL) 10 mg tablet Take 1 tablet (10 mg total) by mouth 2 (two) times a day as needed for muscle spasms 20 tablet 04/18/2024 documented in this encounter Discharge Disposition Disposition Code Departure Means Destination Comment s Discharge to home or self care documented in this encounter ED Notes * Becky Waterman PA - 04/18/2024 3:08 PM CST CHIEF COMPLAINT: Chief Complaint Patient presents with Flank Pain Abdominal Pain HPI 5:03 PM Radhika Goetz is a 63 y.o. female presenting to the ED c/o right-sided abdominal pain and right-sided pain with deep breathing with started over the past weekend. Patient states she has had painin her right-sided abdomen since she had multiple hernia repairs a few months ago. Patient states that it got a lot worse recently and she was started to have some nausea chills. Patient denies any fever, changes in bowel movements, blood in her stool, diarrhea, urinary symptoms, vomiting, cough, shortness of breath. Patient states that the pain started to go into her right-sided chest when she takes a deep breath. Patient states the pain in her chest is intermittent in his chest when she takes deep breath. PCP: Kiran Winn DO PAST MEDICAL HISTORY No past medical history on file. PAST SURGICAL HISTORY No past surgical history on file. FAMILY HISTORY No family history on file. MEDICATIONS GIVEN IN THE ED Medications ondansetron ODT (ZOFRAN-ODT) disintegrating tablet 4 mg (has no administration in time range) ondansetron (ZOFRAN) injection 4 mg (has no administration in time range) acetaminophen (TYLENOL) tablet 975 mg (has no administration in time range) ioversoL (OPTIRAY 350) syringe 100 mL (100 mL intravenous Contrast Given 04/18/24 1556) CURRENT HOME MEDICATIONS Current Facility-Administered Medications: acetaminophen (TYLENOL) tablet 975 mg, 975 mg, oral, Q6H PRN, Andrew Sanches NP ondansetron (ZOFRAN) injection 4 mg, 4 mg, intravenous, Once PRN, Andrew Sanches NP ondansetron ODT (ZOFRAN-ODT) disintegrating tablet 4 mg, 4 mg, oral, Once PRN, Andrew Sanches NP Current Outpatient Medications: HYDROcodone-acetaminophen (NORCO) 5-325 mg per tablet, Take 1-2 tablets by mouth every 4 (four) hours as needed for pain (1 tablet for mild to moderate pain or 2 tablets for severe pain) Do not exceed 8 tablets/day., Disp: 6 tablet, Rfl: 0 ALLERGIES No Known Allergies SOCIAL HISTORY Social History Tobacco Use Smoking status: Not on file Smokeless tobacco: Not on file Substance and Sexual Activity Drug use: Not on file Sexual activity: Not on file Alcohol Use: Not At Risk (01/18/2018) Received from [facility] AUDIT-C Frequency of Alcohol Consumption: Never Average Number of Drinks: Not on file Frequency of Binge Drinking: Not on file PHYSICAL EXAM TRIAGE VITAL SIGNS: ED Triage Vitals [04/18/24 1146] Temp Pulse Resp BP SpO2 36.8 ??C (98.2 ??F) 88 18 138/74 100 % Temp src Heart Rate Source Patient Position BP Location FiO2 (%) Oral -- -- -- -- Height Height Method Weight Weight Method -- -- 90.6 kg (199 lb 11.8 oz) Standing scale Physical Exam Vitals and nursing note reviewed. Constitutional: General: She is not in acute distress. Appearance: She is well-developed. HENT: Head: Normocephalic and atraumatic. Eyes: Conjunctiva/sclera: Conjunctivae normal. Cardiovascular: Rate and Rhythm: Normal rate and regular rhythm. Heart sounds: No murmur heard. Pulmonary: Effort: Pulmonary effort is normal. No respiratory distress. Breath sounds: Normal breath sounds. No stridor, decreased air movement or transmitted upper airwaysounds. No decreased breath sounds, wheezing, rhonchi or rales. Chest: Chest wall: Tenderness (Right lower rib tenderness) present. Abdominal: General: Bowel sounds are normal. Palpations: Abdomen is soft. Tenderness: There is abdominal tenderness in the right upper quadrant and right lower quadrant. There is right CVA tenderness. Musculoskeletal: General: No swelling. Cervical back: Neck supple. Skin: General: Skin is warm and dry. Capillary Refill: Capillary refill takes less than 2 seconds. Neurological: Mental Status: She is alert. Psychiatric: Mood and Affect: Mood normal. LABS Labs Reviewed URINALYSIS AND REFLEX TO MICROSCOPIC AND CULTURE - Abnormal Result Value Color, ur Straw Clarity, ur Clear Specific gravity, ur 1.010 pH, urine 6.5 Protein, ur ql Negative Glucose, ur ql Negative Ketones, ur Negative Bilirubin, ur Negative Blood, ur Negative Urobilinogen, ur <2.0 Nitrite, ur Negative Leukocyte esterase, ur 2+ (*) UA reflex comment Reflex to microscopic UA will be performed. COMPREHENSIVE METABOLIC PANEL - Abnormal Sodium 140 Potassium, pl 4.0 Chloride 103 CO2 27 Anion gap 10 BUN 15 Creatinine 0.50 (*) Glucose 95 Calcium 9.4 Bilirubin, total 0.3 Protein, pl 6.7 Albumin 4.0 Alk phos 71 ALT 13 AST 16 URINALYSIS, MICROSCOPIC ONLY - Abnormal WBC, ur 11-20 (*) RBC, ur 0-2 Epithelial cells, squamous, ur >50 (*) Bacteria, ur Trace (*) Culture Reflex Comment Reflex to urine culture will be performed. URINE CULTURE CBC WITH AUTO DIFFERENTIAL WBC 8.2 Hgb 13.5 Hct 40.8 Plt 307 MPV 10.0 RBC 4.39 MCV 92.9 MCH 30.8 MCHC 33.1 RDW CV 12.6 RDW SD 43.2 NRBC abs 0.00 LIPASE Lipase 16 DIFFERENTIAL AUTO Neutrophil abs 4.8 Imm gran abs 0.1 Lymphocyte abs 2.4 Monocyte abs 0.7 Eosinophil abs 0.2 Basophil abs 0.1 Neutrophil pct 58.7 Imm gran pct 0.6 Lymphocyte pct 28.8 Monocyte pct 8.6 Eosinophil pct 2.6 Basophil pct 0.7 EGFR eGFR >90 TROPONIN T HIGH-SENSITIVITY 2-HOUR Trop T hs <6 Trop T hs delta See Comment Trop T hs pct delta See Comment Trop T hs interp See Comment TROPONIN T HIGH-SENSITIVITY 4-HR Trop T hs <6 Trop T hs delta 0 Trop T hs interp Insignificant TROPONIN T HIGH-SENSITIVITY SERIES (BASELINE, 2HR, 4HR, 6HR) Trop T hs 6 TROPONIN T HIGH-SENSITIVITY SERIES (BASELINE, 2HR, 4HR, 6HR) TROPONIN T HIGH-SENSITIVITY 6-HOUR RADIOLOGY Impression: CTA chest abdomen pelvis:No pulmonary embolism. No bowel obstruction or appendicitis. Very small right groin hernia containing fat. Left groin hernia containing fat. Small periumbilical hernia containing fat. Postoperative changes of the anterior aspect of the pelvis. EKG Normal sinus ED COURSE/MEDICAL DECISION MAKING Differential diagnosis included but not limited to Appendicitis, surgical biliary disease, pancreatitis, SBO, serious intra-abdominal bacterial illness, UTI, kidney stone, gynecological emergencies, PE, pneumonia, rib fracture Patient's medical records were reviewed. Patient seen in the ED for right-sided abdominal pain and right-sided pleuritic chest pain for the past few days. On exam patient has tenderness of the right upper quadrant, right lower quadrant and right lower ribs. Patient has normal lung sounds. Patient has normal bowel sounds. Patient has right-sided CVA tenderness. Patient is heart sounds normal. Patient's labs show probable contaminated urinalysis. EKG shows normal sinus. CTA chest abdomen pelvis shows no PE and shows very small right groin hernia only containing fat and a left groin hernia containing fat in his small periumbilical hernia containing fat. Spoke with the patient about findings. Patient feels comfortable going home and following up with her surgeon regarding the pain from her fat containing hernias. Patient expressed understanding. Patient given strict return precautions if his symptoms worsen. Patient is stable for discharge home and follow up with her PCP. Procedures FINAL IMPRESSION Abdominal pain DISPOSITION: Home All findings were discussed with patient. Pt agreeable with plan. Non toxic appearing, vitals stable. Patient stable for discharge home. Given return to ER precautions Close outpatient follow-up with a low threshold to return has been mandated, concerning symptoms have been emphasized in detail, and this patient expresses understanding PATIENT INSTRUCTED TO FOLLOW UP Kiran Winn DO [address] [facility] [address] In 1 week DISCHARGE MEDICATIONS Your medication list ASK your doctor about these medications Instructions Last Dose Given Next Dose Due HYDROcodone-acetaminophen 5-325 mg per tablet Commonly known as: NORCO 1-2 tablets, oral, Every 4 hours PRN, Do not exceed 8 tablets/day. This examination was transcribed using the Superfeed[employer] voice recognition system without human scrub wheel operator. In an effort to expedite patient care, this report has not been adjusted for typographical, grammatical, and syntax by a trained medical lab director. Becky Waterman PA 04/18/24 1703 TIVE ARTS MUSIC THERAPIST * Ruchi Stanton RN - 04/18/2024 11:44 AM CST Pt reports hx of hernias to RLQ region a few months ago. Pt reports for approx 1 week has been c/o RLQ pain that radiates down into R groin region. Pt reports last night noted pain has moved up to R flank/rib region. Endorsing nausea, denies vomiting. TIVE ARTS MUSIC THERAPIST documented in this encounter Plan of Treatment Pending Results Name Type Priority Associated Diagnoses Date /Time Troponin T high-sensitivity series (baseline, 2hr, 4hr, 6hr) Lab STAT 2023 11:53 AM CREATIVE ARTS MUSIC THERAPIST Scheduled Orders Name Type Priority Associated Diagnoses Orde r Schedule Troponin T high-sensitivity series (baseline, 2hr, 4hr, 6hr) Lab STAT Once for 1 Occur rences starting 04/18/2024 until 04/18/2024 documented as of this encounter Procedures Procedure Name Priority Date/Time Associated Diagnosis Comments TROPONIN T HIGH-SENSITIVITY 4-HR Timed 04/18/2024 4:24 PM CREATIVE ARTS MUSIC THERAPIST CT CHEST PE ABDOMEN PELVIS W CONTRAST ED 04/18/2024 3:56 PM CREATIVE ARTS MUSIC THERAPIST ECG 12-LEAD STAT 04/18/2024 3:22 PM CREATIVE ARTS MUSIC THERAPIST TROPONIN T HIGH-SENSITIVITY 2-HOUR Timed 04/18/2024 3:20 PM CREATIVE ARTS MUSIC THERAPIST URINALYSIS AND REFLEX TO MICROSCOPIC AND CULTURE STAT 04/18/2024 12:02 PM CREATIVE ARTS MUSIC THERAPIST URINALYSIS, MICROSCOPIC ONLY STAT 04/18/2024 12:02 PM CREATIVE ARTS MUSIC THERAPIST URINE CULTURE STAT 04/18/2024 12:02 PM CREATIVE ARTS MUSIC THERAPIST TROPONIN T HIGH-SENSITIVITY SERIES (BASELINE, 2HR, 4HR, 6HR) STAT 04/18/2024 11:53 AM CREATIVE ARTS MUSIC THERAPIST EGFR STAT 04/18/2024 11:53 AM CREATIVE ARTS MUSIC THERAPIST DIFFERENTIAL AUTO STAT 04/18/2024 11: 53 AM CREATIVE ARTS MUSIC THERAPIST CBC WITH AUTO DIFFERENTIAL STAT 04/18/2024 11:53 AM CREATIVE ARTS MUSIC THERAPIST LIPASE STAT 04/18/2024 11:53 AM CREATIVE ARTS MUSIC THERAPIST COMPREHENSIVE METABOLIC PANEL STAT 04/18/2024 11:53 AM CREATIVE ARTS MUSIC THERAPIST documented in this encounter Results * Troponin T high-sensitivity 4-hour (04/18/2024 4:24 PM CREATIVE ARTS MUSIC THERAPIST) Trop T hs <6 <=14 ng/L Comment: Interpretive Data For further hscTnT resources including the diagnostic algorithm and an aid in interpretation, copy and paste this link: https://nrl.testcatalog.org/show/hsTrop Current Interpretive Data last revised 2020. Testing performed by: [address] [address] Trop T hs delta 0 ng/L ALAINA CHOW Comment:Testing performed by : [address] [address] Trop T hs interp Insignificant ALAINA CHOW Comment:Testing performed by : [address] [address] Blood 04/18/2024 4:24 PM CREATIVE ARTS MUSIC THERAPIST 04/18/2024 4:31 PM CREATIVE ARTS MUSIC THERAPIST us Jeanmariah CarterVerónica HIGHWAY ENGINEER LAB BLOOD ORDERABLES Final Resul t ALAINA CHOW [address] [facility] [place] [address] * CT Chest PE (CTA) Abdomen Pelvis W Contrast (04/18/2024 3:56 PM CREATIVE ARTS MUSIC THERAPIST) Anatomical Region Laterality Modality Body N/A Computed Tomogra phy 04/18/2024 4:17 PM CREATIVE ARTS MUSIC THERAPIST Narrative 04/18/2024 4:39 PM CREATIVE ARTS MUSIC THERAPIST EXAM DESCRIPTION: CT CHEST PE (CTA) ABDOMEN [...] PM T: ??04/18/2024 4:39 PM Report ID: [id number] Reading Location: ??[id number] Procedure Note Mumtaz Severino, DO - 04/18/2024 [...] Mumtaz Severino M.D. JS: VINICIUS Report ID: [id number] Reading Location: [id number] Andrew Sanches NP IMG CT PROCEDURES Final Result * ECG 12 lead (04/18/2024 3:22 PM CREATIVE ARTS MUSIC THERAPIST) Ventricular Rate EKG/Min 68 BPM [facility] Atrial Rate 68 BPM [facility] CA-Interval (MSEC) 164 ms [facility] QRS-Interval (MSEC) 84 ms [facility] QT-Interval (MSEC) 396 ms [facility] QTc 421 ms [facility] P Hatley 73 degrees [facility] R Hatley 18 degrees [facility] T Hatley 48 degrees [facility] Diagnosis Normal sinus rhythm Normal ECG No previous ECGs available Confirmed by SULTAN GLASS M.D. ([id number]) on 04/18/2024 6:34:23 PM [facility] 04/18/2024 3:22 PM CREATIVE ARTS MUSIC THERAPIST 04/18/2024 6:34 PM CREATIVE ARTS MUSIC THERAPIST us Becky ISEGEL ECG ORDERABLES Final Result [facility] * Troponin T high-sensitivity 2-hour (04/18/2024 3:20 PM CREATIVE ARTS MUSIC THERAPIST) Trop T hs <6 <=14 ng/L Comment: Interpretive Data For further hscTnT resources including the diagnostic algorithm and an aid in interpretation, copy and paste this link: https://nrl.testcatalog.org/show/hsTrop Current Interpretive Data last revised 2020. Testing performed by: [address] [address] Trop T hs delta See Comment ng/L ALAINA CHOW Comment: Inappropriate collection time to report a delta. Testing performed by: [address] [address] Trop T hs pct delta See Comment % ALAINA Comment: Inappropriate collection time to report a delta. Testing performed by: [address] [address] Trop T hs interp See Comment ALAINA Comment: Inappropriate collection time to report a delta. Testing performed by: [address] [address] Blood 04/18/2024 3:20 PM CREATIVE ARTS MUSIC THERAPIST 04/18/2024 3:29 PM CREATIVE ARTS MUSIC THERAPIST us Andrew Sanches NP LAB BLOOD ORDERABLES Final Resul t Performing Organization Address City/[facility]/ZIP Co de Phone Number [facility] [address] [facility] Department [place] [address] * Urine culture Urine (04/18/2024 12:02 PM CREATIVE ARTS MUSIC THERAPIST) Report Final Report: Less than 100,000 colonies/mL (clinically insignificant growth based on current clinical standards) Comment:Testing performed by : [facility], [address] [place]., [address] Organism (CLINICALLY INSIGNIFICANT GROWTH ALAINA Urine 04/18/2024 12:0 2 PM CREATIVE ARTS MUSIC THERAPIST 04/18/2024 4:10 PM CREATIVE ARTS MUSIC THERAPIST Narrative ALAINA - 04/19/2024 6:41 PM CREATIVE ARTS MUSIC THERAPIST Urine culture reflexed based upon urinalysis results. Testing performed by [facility] Microbiology Laboratory ([phone]) Andrew Sanches LAB MICROBIOLOGY - GENERAL ORDER CARMEN Final Result Performing Organization Address [facility] de Phone Number [facility] [address] [email or web address] [address] * (ABNORMAL) Urinalysis, microscopic only (04/18/2024 12:02 PM CREATIVE ARTS MUSIC THERAPIST) WBC, ur 11-20(A) 0 - 5 /HPF Comment:Testing performed by : [address] [address] RBC, ur 0-2 0 - 2 /HPF ALAINA Comment:Testing performed by : [address] [address] Epithelial cells, squamous, ur >50(A) 0 - 5 /HPF ALAINA Comment:Testing performed by : [address] [address] Bacteria, ur Trace(A) ALAINA Comment:Testing performed by : [address] [address] Culture Reflex Comment Reflex to urine culture will be performed. ALAINA Comment:Testing performed by : [address] [address] Urine 04/18/2024 12:0 2 PM CREATIVE ARTS MUSIC THERAPIST 04/18/2024 12:15 PM CREATIVE ARTS MUSIC THERAPIST Andrew Verónica LAB URINE ORDERABLES Final Resul t Performing Organization Address [facility] de Phone Number [facility] [address] [facility] [place] [place] [place] [address] * (ABNORMAL) Urinalysis reflex to microscopic and culture Urine (04/18/2024 12:02 PM CREATIVE ARTS MUSIC THERAPIST) Color, ur Straw Yellow Comment:Testing performed by : [address] [address] Clarity, ur Clear Clear ALAINA Comment:Testing performed by : [address], [place]., [address] Specific gravity, ur 1.010 1.003 - 1.030 ALAINA Comment:Testing performed by : [address] [address] pH, urine 6.5 ALAINA Comment: Interpretive Data ? Urine pH is affected by diet, medications, systemic acid-base disturbances, and renal tubular function. ??pH may affect urinary stone formation. ??For example, urine pH below 6.0 may help reduce the tendency for calcium phosphate stones and pH greater than 6.0 may reduce the tendency for uric acid stone formation. Source: [facility] [employer] Current Interpretive Data was last revised on 2017 Testing performed by: [address] [address] Protein, ur ql Negative Negative ALAINA Comment:Testing performed by : [address] [address] Glucose, ur ql Negative Negative ALAINA Comment:Testing performed by : [address] [address] Ketones, ur Negative Negative ALAINA Comment:Testing performed by : [address] [address] Bilirubin, ur Negative Negative ALAINA Comment:Testing performed by : [address] [address] Blood, ur Negative Negative ALAINA Comment:Testing performed by : [address], [place]., [address] Urobilinogen, ur <2.0 <2.0 mg/dL ALAINA Comment:Testing performed by : [address] [address] Nitrite, ur Negative Negative ALAINA Comment:Testing performed by : [address] [address] Leukocyte esterase, ur 2+(A) Negative ALAINA Comment:Testing performed by : [address] [address] UA reflex comment Reflex to microscopic UA will be performed. ALAINA Comment:Testing performed by : [address] [address] Urine 04/18/2024 12:0 2 PM CREATIVE ARTS MUSIC THERAPIST 04/18/2024 12:15 PM CREATIVE ARTS MUSIC THERAPIST Andrew Verónica HIGHWAY ENGINEER LAB MICROBIOLOGY - GENERAL ORDER CARMEN Final Result Performing Organization Address [facility] de Phone Number ALAINA [address] [place] [address] * Troponin T high-sensitivity series (baseline, 2hr, 4hr, 6hr) (04/18/2024 11:53 AM CREATIVE ARTS MUSIC THERAPIST) Pathologist [facility] Trop T hs 6 <=14 ng/L Comment: Interpretive Data For further hscTnT resources including the diagnostic algorithm and an aid in interpretation, copy and paste this link: https://nrl.testcatalog.org/show/hsTrop Current Interpretive Data last revised 2020. Testing performed by: [address] [address] Blood 04/18/2024 11:5 3 AM CREATIVE ARTS MUSIC THERAPIST 04/18/2024 12:15 PM CREATIVE ARTS MUSIC THERAPIST Andrew Verónica LAB BLOOD ORDERABLES Final Resul t Performing Organization Address [facility] Co de Phone Number LIS[address] [place] [address] * eGFR (04/18/2024 11:53 AM CREATIVE ARTS MUSIC THERAPIST) Pathologist [facility] eGFR >90 >=60 mL/min/1. 73 m2 Comment: [...] was last reviewed 2021. Testing performed by: [address] [address] Blood 04/18/2024 11:5 3 AM CREATIVE ARTS MUSIC THERAPIST 04/18/2024 12:15 PM CREATIVE ARTS MUSIC THERAPIST us Andrew Sanches NP LAB BLOOD ORDERABLES Final Resul t [facility] [address] [facility] Department [place] [address] * Differential, auto (04/18/2024 11:53 AM CREATIVE ARTS MUSIC THERAPIST) Neutrophil abs 4.8 1.5 - 6.5 K/cumm Comment:Testing performed by : [address] [address] Imm gran abs 0.1 0.0 - 0.1 K/cumm ALAINA CHOW Comment:Testing performed by : [address] [address] Lymphocyte abs 2.4 0.8 - 3.3 K/cumm ALAINA Comment:Testing performed by : [address] [place] [address] Monocyte abs 0.7 0.2 - 0.8 K/cumm [facility] Comment:Testing performed by : [address] [address] Eosinophil abs 0.2 0.0 - 0.5 K/cumm [facility] Comment:Testing performed by : [address] [address] Basophil abs 0.1 0.0 - 0.1 K/cumm [facility] Comment:Testing performed by : [address] [address] Neutrophil pct 58.7 % [facility] Comment: Interpretive Data Percent cell count reference ranges are not reported, since discordance with absolute values may lead to misinterpretation of CBC data. Current Interpretive Data was last revised on 2017. Testing performed by: [address] [address] Imm gran pct 0.6 % [facility] Comment: Interpretive Data Percent cell count reference ranges are not reported, since discordance with absolute values may lead to misinterpretation of CBC data. Current Interpretive Data was last revised on 2017. Testing performed by: [address] [address] Lymphocyte pct 28.8 % [facility] Comment: Interpretive Data Percent cell count reference ranges are not reported, since discordance with absolute values may lead to misinterpretation of CBC data. Current Interpretive Data was last revised on 2017. Testing performed by: [address] [address] Monocyte pct 8.6 % [facility] Comment: Interpretive Data Percent cell count reference ranges are not reported, since discordance with absolute values may lead to misinterpretation of CBC data. Current Interpretive Data was last revised on 2017. Testing performed by: [address] [address] Eosinophil pct 2.6 % [facility] Comment: Interpretive Data Percent cell count reference ranges are not reported, since discordance with absolute values may lead to misinterpretation of CBC data. Current Interpretive Data was last revised on 2017. Testing performed by: [address] [address] Basophil pct 0.7 % [facility] Comment: Interpretive Data Percent cell count reference ranges are not reported, since discordance with absolute values may lead to misinterpretation of CBC data. Current Interpretive Data was last revised on 2017. Testing performed by: [address] [address] Blood 04/18/2024 11:5 3 AM CREATIVE ARTS MUSIC THERAPIST 04/18/2024 12:15 PM CREATIVE ARTS MUSIC THERAPIST [facility] BLOOD ORDERABLES Final Resul t Performing Organization Address [facility] Co de Phone Number [address] [place] [address] * Lipase (04/18/2024 11:53 AM CREATIVE ARTS MUSIC THERAPIST) Pathologist [facility] Lipase 16 10 - 99 Units/L Comment:Testing performed by : [address] [address] Blood (Blood, Venous) 04/18/2024 11:53 AM CREATIVE ARTS MUSIC THERAPIST 04/18/2024 12:15 PM CREATIVE ARTS MUSIC THERAPIST [facility] BLOOD ORDERABLES Final Resul t Performing Organization Address [facility] Co de Phone Number [address]IS[address] [address] * (ABNORMAL) Comprehensive metabolic panel (04/18/2024 11:53 AM CREATIVE ARTS MUSIC THERAPIST) Sodium 140 135 - 145 mmol/L Comment:Testing performed by : [address] [address] Potassium, pl 4.0 3.3 - 4.9 mmol/L [facility] Comment:Testing performed by : [address] [address] Chloride 103 97 - 110 mmol/L [facility] Comment:Testing performed by : [address] [address] CO2 27 22 - 32 mmol/L [facility] Comment:Testing performed by : [address] [address] Anion gap 10 2 - 15 mmol/L [facility] Comment:Testing performed by : [address] [address] BUN 15 6 - 25 mg/dL [facility] Comment:Testing performed by : [address] [address] Creatinine 0.50(L) 0.60 - 1.10 mg/dL [facility] Comment:Testing performed by : [address] [address] Glucose 95 70 - 199 mg/dL [facility] [...] classification and Diagnosis of Diabetes Diabetes Care 2021; 46: S19-S40. Current interpretive data was last revised 2022. Testing performed by: [address] [address] Calcium 9.4 8.5 - 10.3 mg/dL [facility] Comment:Testing performed by : [address] [address] Bilirubin, total 0.3 0.1 - 1.2 mg/dL [facility] Comment:Testing performed by : [address] [address] Protein, pl 6.7 6.5 - 8.5 g/dL [facility] Comment:Testing performed by : [address] [address] Albumin 4.0 3.5 - 5.0 g/dL [facility] Comment:Testing performed by : [address] [address] Alk phos 71 40 - 130 Units/L [facility] Comment:Testing performed by : [address] [address] ALT 13 7 - 45 Units/L [facility] Comment:Testing performed by : [address] [address] AST 16 10 - 45 Units/L [facility] Comment:Testing performed by : [address] [address] Blood (Blood, Venous) 04/18/2024 11:53 AM CREATIVE ARTS MUSIC THERAPIST 04/18/2024 12:15 PM CREATIVE ARTS MUSIC THERAPIST us Andrew Sanches NP LAB BLOOD ORDERABLES Final Resul t [facility] [address] [place] [address] [place] [address] * CBC with auto differential (04/18/2024 11:53 AM CREATIVE ARTS MUSIC THERAPIST) WBC 8.2 3.8 - 9.9 K/cumm Comment:Testing performed by : [address] [address] Hgb 13.5 11.9 - 15.5 g/dL [facility] Comment:Testing performed by : [address] [address] Hct 40.8 35.6 - 45.5 % [facility] Comment:Testing performed by : [address] [address] Plt 307 150 - 400 K/cumm [facility] Comment:Testing performed by : [address] [address] MPV 10.0 9.1 - 12.3 fL [facility] Comment:Testing performed by : [address] [address] RBC 4.39 3.90 - 5.20 M/cumm [facility] Comment:Testing performed by : [address] [address] MCV 92.9 81.3 - 96.4 fL [facility] Comment:Testing performed by : [address] [address] MCH 30.8 27.1 - 33.3 pg [facility] Comment:Testing performed by : [address] [address] MCHC 33.1 32.3 - 35.7 g/dL [facility] Comment:Testing performed by : [address] [address] RDW CV 12.6 11.1 - 14.9 % [facility] Comment:Testing performed by : [address] [address] RDW SD 43.2 35.7 - 48.1 fL [facility] Comment:Testing performed by : [address] [address] NRBC abs 0.00 0.00 - 0.01 K/cumm [facility] Comment:Testing performed by : [address] [address] Blood (Blood, Venous) 04/18/2024 11:53 AM CREATIVE ARTS MUSIC THERAPIST 04/18/2024 12:15 PM CREATIVE ARTS MUSIC THERAPIST us Andrew Sanches NP LAB BLOOD ORDERABLES Final Resul t [facility] Department of Laboratories [place], [place] [id number] documented in this encounter Visit Diagnoses Diagnosis Abdominal pain- Primary Abdominal pain, unspecified site documented in this encounter Administered Medications Inactive Administered Medications - up to 3 most recent administrations Medication Order MAR Action Action Date Dose Rate Site acetaminophen (TYLENOL) tablet 975 mg 975 mg (rounded from 1,000 mg), oral, Every 6 hours PRN, Flank Pain, Starting on Thu04/18/24 at 1147, For 2 doses, Do not administer if patient has taken greater than 3g of acetaminophen in the past 24 hours. Do not administer if patient has history of liver disease., Indications: Flank PainIndications:Flank Pain ioversoL (OPTIRAY 350) syringe 100 mL 100 mL, intravenous, Once in imaging, contrast, Starting on Thu04/18/24 at 1543, For 1 dose Contrast Given 04/18/2024 3:56 PM CREATIVE ARTS MUSIC THERAPIST 100 mL ondansetron (ZOFRAN) injection 4 mg 4 mg, intravenous, Administer over 2 Minutes, Once as needed, nausea, vomiting, If patient unable to tolerate PO, Starting on Thu04/18/24 at 1147, For 1 dose, Do not administer if patient had 8mg administered within 6 hours of patient presenting to ED Do not administer if patient was formally diagnosed with prolonged QT syndrome ondansetron ODT (ZOFRAN-ODT) disintegrating tablet 4 mg 4 mg, oral, Once as needed, nausea, vomiting, If able to tolerate PO, Starting on Thu04/18/24 at 1147, For 1 dose, Do not administer if patient had 8mg administered within 6 hours of patient presenting to ED Do not administer if patient was formally diagnosed with prolonged QT syndrome documented in this encounter Active and Recently Administered Medications Times are shown in CREATIVE ARTS MUSIC THERAPIST. PRN Medication Order 04/16/2024 04/17/2024 04/18/2024 acetaminophen (TYLENOL) tablet 975 mg 975 mg (rounded from 1,000 mg), oral, Every 6 hours PRN, Flank Pain, Starting on Thu04/18/24 at 1147, For 2 doses, Do not administer if patient has taken greater than 3g of acetaminophen in the past 24 hours. Do not administer if patient has history of liver disease., Indications: Flank Pain ioversoL (OPTIRAY 350) syringe 100 mL (COMPLETED) 100 mL, intravenous, Once in imaging, contrast, Starting on Thu04/18/24 at 1543, For 1 dose 1556 (Contrast Given - Provider: Whitley Schaeffer RT) ondansetron (ZOFRAN) injection 4 mg 4 mg, intravenous, Administer over 2 Minutes, Once as needed, nausea, vomiting, If patient unable to tolerate PO, Starting on Thu04/18/24 at 1147, For 1 dose, Do not administer if patient had 8mg administered within 6 hours of patient presenting to ED Do not administer if patient was formally diagnosed with prolonged QT syndrome ondansetron ODT (ZOFRAN-ODT) disintegrating tablet 4 mg 4 mg, oral, Once as needed, nausea, vomiting, If able to tolerate PO, Starting on Thu04/18/24 at 1147, For 1 dose, Do not administer if patient had 8mg administered within 6 hours of patient presenting to ED Do not administer if patient was formally diagnosed with prolonged QT syndrome documented in this encounter Orders Medications Ordered That Varun ht Not Have Been Administered Count Last Ordered Date First Ordered Date acetaminophen (TYLENOL) tablet 975 mg 1 ondansetron (ZOFRAN) injection 4 mg 1 04/18 ondansetron ODT (ZOFRAN-ODT) disintegrating tablet 4 mg 1 04/18/2024 Nursing Count Last Ordered Date First Orde red Date MISCELLANEOUS NURSING CARE ORDER (SPECIFY) 1 04/18/2024 IV Count Last Ordered Date First Orde red Date SALINE LOCK IV 1 04/18/2024 documented in this encounter Care Teams Home Energy Inspector Relationship Specialty Start Date End Date Kiran Winn DO [place] [address] [place] [address] PCP - General Family Medicine 02/01/18 documented as of this encounter
--- OUTSIDE RECORDS SUMMARY | 2024-05-03 20:26 | XMS_ITS | Encounter Summary ---
Author Organization [facility] Address [address] [place] [address] Care Team Providers Care Manager Managed Care Name Role Phone Kiran Winn DO Primary Care Provider Reason for Visit * Auth/Cert Specialty Diagnoses / Procedures Referred By Jono t Referred To Contact Gastroenterology Diagnoses Colon cancer screening Colon cancer screening [Z12.11] Procedures COLONOSCOPY [facility] [address] [place] [address] Referral ID Status Reason Start Date Expiration Date Visits Re quested Visits Authorized [id number] 1 1 Encounter Details Date Type Department Care Team (Late st Contact Info) Description 12/08/2016 11:28 AM CDT Anesthesia Event [facility] S [facility] [address] [place] [address] Larry Sher MD [address] [place] [phone] Anesthesia Record Procedure Summary Procedure Name Responsible Anesthesiologist Anesthesia Start Time Anesthesia Stop Time COLONOSCOPY (Anus) Larry Sher MD 12/08/16 1128 12/08/16 1200 Events Date Time Event Comment 12/08/2016 1106 1128 An Start 1128 An Start Data 1128 Pre-Induction Immediate pre- induction anesthetic assessment performed. Vital signs as noted on graphic. 1136 An Induction 1137 Anesthesia Ready 1156 an stop data 1200 An Stop Meds Name Total lidocaine (XYLOCAINE) 2% injection 60 mg propofol (DIPRIVAN) 10??mg/mL injection 330 mg lactated Ringers solution 650 mL * Agents Name O2 Inspired O2 N2O Inspired N2O * Blood No blood administrations on file. Lines, Drains, and Airways Type Details Placement Removal Peripheral IV Pre-Hospital Start: No; Location: Hand; Gauge: 20 gauge; Insertion Attempts: 1 (romulo mcfarlane); Patient Tolerance: tolerated well 12/08/16 1049 by Cheryl Quintana RN documented in this encounter Social History Tobacco Use Types Packs/Day Years Used Date Smoking Tobacco: Never Smokeless Tobacco: Never Alcohol Use Standard Drinks/Week Comments No 0 (1 standard drink = 0.6 oz pur e alcohol) Sex and Gender Information Value Date Recorded Sex Assigned at Not on file Gender Identity Not on file Sexual Orientation Not on file documented as of this encounter OR Notes * Anesthesia Postprocedure Evaluation - Larry Sher MD - 12/08/2016 12:04 PM CDT Phase II Postanesthesia Evaluation Including [facility] Modified Amina Score Patient seen and evaluated: [facility] Modified Amina Score: Score: 20 (12/08/16 1040) COMMENTS: No apparent Anesthesia related complications RESPIRATORY FUNCTION: Respiration: able to breath and cough freely (12/08/16 104) [2=able to breathe and cough freely, 1=dyspnea, limited breathing or tachypnea, 0=apnea or mechanicventilator] O2 Saturation: able to maintain O2 saturation greater than 92% on room air (12/08/16 1040) [2=able to maintain O2 saturation greater than 92% on room air, 1=needs O2 inhalation to maintain O2 saturation greater than 90%, 0=O2 saturation less than 90% even with O2 supplement] Resp: 18 (12/08/16 1203)SpO2: 99 % (12/08/16 1203) CARDIOVASCULAR FUNCTION: BP: 98/55 (12/08/16 1203) Circulation: BP within 20% of preanesthetic level (12/08/16 1040) [2=BP within 20% of preanesthetic level, 1=BP within 20-49% of preanesthetic level, 0=BP within 50%of preanesthetic level] MENTAL STATUS, NEURO, ACTIVITY: PATIENT PARTICIPATION IN EVALUATIONyes Consciousness: fully awake (12/08/16 1040) [2=fully awake, 1=arousable on calling, 0=not responding] Activity: able to move 4 extremities voluntarily or on command (12/08/16 104) [2=able to move 4 extremities voluntarily or on command, 1=able to move 2 extremities voluntarily or on command, 0=unable to move extremities voluntarily or on command] Ambulation: able to stand up and walk straight, on ordered bedrest, or performing at patient's prior level of function (12/08/16 104) [2=able to stand up and walk straight, on ordered bedrest, or performing at patient's prior level of function, 1=vertigo when erect, 0=dizziness when supine] TEMPERATURE: Temp: 36.4 ??C (12/08/16 1158) PAIN: Pain: pain free (12/08/16 104) [2=pain free, 1=pain handled by oral medication, 0=pain requiring parenteral medication] NAUSEA AND VOMITING: no nausea and no vomiting Fasting/Feeding: able to drink fluids, ice chips or NPO (12/08/16 104) [2=able to drink fluids, ice chips or NPO, 1=nauseated, 0=nausea and vomiting] POSTOPERATIVE HYDRATION: well hydrated Intake/Output Summary (Last 24 hours) at 12/08/16 1204 Last data filed at 12/08/16 1200 Gross per 24 hour Intake 650 ml Output 0 ml Net 650 ml Urine Output: has voided, adequate urine output per device, or not applicable (12/08/16 104) [2=has voided, adequate urine output per device, or not applicable, 1=unable to void but comfortable, 0=unable to void and uncomfortable] WOUND: Dressing: dry and clean or not applicable (12/08/16 1040) [2=dry and clean or not applicable, 1=wet, marked and not increasing, 0=growing area of wetness] Larry Sher MD 12/08/2016 12:04 PM Post Anesthesia Evaluation Vitals: BP 98/55 (BP Location: Right arm, Patient Position (BP): Sitting) Pulse 63 Temp 36.4 ??C (Temporal) Resp 18 Ht 5' 7 (1.702 m) Wt 81.6 kg (180 lb) SpO2 99% BMI 28.19 kg/m2 Pain Rating: Nausea/Vomiting: no nausea and no vomiting Post-Op hydration: well hydrated Respiratory function: no respiratory symptoms Airway patency: normal Cardiovascular function: Normal - Regular rate and rhythm Mental status, LOC: 0=alert; keenly responsive Patient participated in evaluation: yes Unanticipated Events: no Larry Sher MD * Anesthesia Handoff - Peter Moreno AA-C - 12/08/2016 12:00 PM CDT Post-Anesthetic transfer of care report elements to appropriate post-anesthesia recovery environment completed in accordance with procedure. I completed my handoff to the receiving nurse during which we: 1. Identified the patient 2. Identified the responsible provider 3. Reviewed the pertinent medical history 4. Discussed the surgical course 5. Reviewed intra-op anesthesia management and issues during anesthesia 6. Set expectations for post-procedure period 7. Allowed opportunity for questions and acknowledgement of understanding. Vital Signs: BP: 94/37 (12/08/2016 11:58 AM) Pulse: 60 (12/08/2016 11:58 AM) Temp: 36.4 ??C (12/08/2016 11:58 AM) Resp: 16 (12/08/2016 10:46 AM) SpO2: 97 % (12/08/2016 11:58 AM) 12:00 PM ELISHA Olsen * Anesthesia Preprocedure Evaluation - Larry Sher MD - 12/08/2016 11:06 AM CDT Anesthesia Evaluation Patient summary reviewed Airway Mallampati: II TM distance: >3 FB Neck ROM: full Dental - normal exam Pulmonary - negative ROS and normal exam breath sounds clear to auscultation Cardiovascular - negative ROS and normal exam Rhythm: regular Rate: normal Neuro/Psych - negative ROS GI/Hepatic/Renal - negative ROS (+) bowel prep Endo/Other - negative ROS Abdominal Anesthesia History Anesthesia Plan ASA 2 MAC (Risks discussed with patient. Sedation explained to patient. Questions answered. Patient wishes toproceed.) Intravenous induction NPO status > 6 hours Anesthetic plan and risks discussed with Patient. Plan discussed with Anesthesiologist Furniture Painter and Anesthesiologist. Post-op Pain Control Plan to use IV or IM medication for post-op pain control. documented in this encounter Plan of Treatment Not on file documented as of this encounter Visit Diagnoses Not on filedocumented in this encounter Administered Medications Inactive Administered Medications - up to 3 most recent administrations Medication Order MAR Action Action Date Dose Rate Site lidocaine 2 % (XYLOCAINE) injection INTRA-PROCEDURE PRN, Starting on Thu12/08/16 at 1136, Until Thu12/08/16 at 1200, Other (See Comment), Routine, Anesthesia Intra-op Given 12/08/2016 11:36 AM CDT 60 mg propofol (DIPRIVAN) injection INTRA-PROCEDURE PRN, Starting on Thu12/08/16 at 1136, Until Thu12/08/16 at 1200, Anesthesia Intra-op Given 12/08/2016 11:51 AM CDT 30 mg Given 12/08/2016 11:48 AM CDT 50 mg Given 12/08/2016 11:45 AM CDT 50 mg documented in this encounter Care Teams Manager Managed Care Relationship Specialty Start Date End Date Kiran Winn DO [address] [place] [id number] PCP - General Family Practice 07/15/16 documented as of this encounter
--- OUTSIDE RECORDS SUMMARY | 2024-05-03 20:26 | XMS_ITS ---
Author Organization 1 OF Clarence bean DPM [facility] Address [address] [place] [phone] Care Team Providers Care Coil Builder Name Role Phone UNKNOWN, UNKNOWN Primary Care Provider Mumtaz Williamson [phone] REASON FOR VISIT b/l neuroma Encounters Encounter Location Date Provider Diagnosis [address] OF [facility] Guy [address] [address] 04/15/2024 Mumtaz Santiago Plan Of Treatment No Information Progress Notes * Radhika DICKSON MDOB:1960 ([age] yo F)Acc No.[id number]:04/15/2024 Progress Notes Patient:?Radhika DICKSON Provider:?Mumtaz Santiago DPM :1960???Age:63 Y???Sex:Female D ate:04/15/2024 Address:[address] [place], [place] [phone] Pcp:UNKNOWN UNKNOWN Subjective: * Chief Complaints: * ???1. B/l neuroma. * Medical History:? Objective: * Vitals:? Assessment: Plan: * Treatment: * Images: * Electronic signature of Mumtaz Santiago DPM on 05/03/2024 at 08:25 PM SPECIAL EDUCATION PRESCHOOL TEACHER Sign off status: Pending * Provider:?Mumtaz Santiago DPM Date:?03/28 Generated for Noami aamir/Faxing/eTransmitting on:?05/03/2024 08:25 PM SPECIAL EDUCATION PRESCHOOL TEACHER
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
--- OUTSIDE RECORDS SUMMARY | 2024-05-03 20:26 | XMS_ITS | Continuity of Care Document ---
Author Name Sarah Cabrera Address [address] [facility] [place] [address] Organization Unknown Address [address] [place] [address] [address] [place] [address] Problems No known problems
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
--- OUTSIDE RECORDS SUMMARY | 2024-05-03 20:26 | XMS_ITS | Encounter Summary ---
Author Organization [facility] Address [address] [place] [address] Care Team Providers Care Towel Inspector Name Role Phone Kiran Winn DO Primary Care Provider Encounter Details Date Type Department Care Team (Late st Contact Info) Description 05/23/2023 External Device Data [facility] Provider, Abstract [...] on filedocumented in this encounter Care Teams Towel Inspector Relationship Specialty Start Date End Date Kiran Winn DO [address] [place] [address] PCP - General Family Practice 07/15/16 documented as of this encounter
--- OUTSIDE RECORDS SUMMARY | 2024-05-03 20:26 | XMS_ITS | Encounter Summary ---
Author Organization [facility] Address [address] [place] [address] Care Team Providers Care Blower Mechanic Name Role Phone Kiran Winn DO Primary [...] on filedocumented in this encounter Care Teams Blower Mechanic Relationship Specialty Start Date End Date Kiran Winn DO [address] [place] [address] PCP - General Family Practice 07/15/16 documented as of this encounter
--- OUTSIDE RECORDS SUMMARY | 2024-05-03 20:26 | XMS_ITS | Encounter Summary ---
Author Organization [facility] Address [address] [place] [address] Care Team Providers Care Coal Cutter Name Role Phone Kiran Winn DO Primary Care Provider Encounter Details Date Type Department Care Team (Late st Contact Info) Description 04/08/2023 External Device Data [facility] Provider, Abstract [...] on filedocumented in this encounter Care Teams Coal Cutter Relationship Specialty Start Date End Date Kiran Winn DO [address] [employer] [address] PCP - General Family Practice 07/15/16 documented as of this encounter
--- OUTSIDE RECORDS SUMMARY | 2024-05-03 20:26 | XMS_ITS | Encounter Summary ---
Author Organization [facility] Address [address] [place] [address] Care Team Providers Care Bagging Machine Operator Name Role Phone Kiran Winn DO Primary Care Provider Encounter Details Date Type Department Care Team (Late st Contact Info) Description 05/22/2023 External Device Data [facility] Provider, Abstract [...] on filedocumented in this encounter Care Teams Bagging Machine Operator Relationship Specialty Start Date End Date Kiran Winn DO [address] [place] [address] PCP - General Family Practice 07/15/16 documented as of this encounter
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
--- OUTSIDE RECORDS SUMMARY | 2024-05-03 20:26 | XMS_ITS ---
Author Organization 1 OF Clarence bean DPM [facility] Address [address] [place] [address] Care Team Providers Care Cylindrical Mixer Name Role Phone UNKNOWN, UNKNOWN Primary Care Provider Mumtaz Williamson [phone] REASON FOR VISIT B/L neuroma Encounters Encounter Location Date Provider Diagnosis 1 OF Clarence Guy DPZeeshan [address] [address] 03/16/2024 Mumtaz Santiago Plan Of Treatment No Information Progress Notes * Radhika DICKSON MDOB:1960 ([age] yo F)Acc No.[id number]:03/16/2024 Progress Notes Patient:?Radhika DICKSON Provider:?Mumtaz Santiago DPM :1960???Age:63 Y???Sex:Female D ate:03/16/2024 [facility] Pcp:UNKNOWN UNKNOWN Subjective: * Chief Complaints: * ???1. B/L neuroma. * HPI: ???MA assisting with visit::?HPI/Rooming:?......?Primary reason for visit::?63 y/o Female RTO for f/u of B/L neuroma. At last visit treatment consisted of suggestion of a CAM boot however pt declined and said it was difficult to walk in. Pt also to continue utilizing the crutch minimizing her weightbearing on her right foot and continue with the prednisone as well as the Flexeril and discontinue the antibiotic. * Medical History:? Objective: * Vitals:? * Examination: ???General Examination: ?Constitutional / Appearance: ?No acute distress , Well nourished, Appropriate personal hygiene.?Mental status: ?Cooperative, Oriented to person, place and time, Mood and affect: normal, Judgement and intellect: normal with appropriate response to questions.?Shoes today:?XXXX.?Exam unchanged from prior visit:?with no significant changes in appearance or condition of feet .? Assessment: Plan: * Treatment: * Images: * Electronic signature of Mumtaz Santiago DPM on 05/03/2024 at 08:26 PM VENEER SAWYER Sign off status: Pending * Provider:?Mumtaz Santiago DPM Date:?02/26 Generated for Tammy rutledge/Krista/Lorena on:?05/03/2024 08:26 PM VENEER SAWYER History and Physical Notes * HPI (History of Present Illness) Category Sub-Category Detail Notes Category Not es Primary reason for visit: 63 y/o Female RTO fo r f/u of B/L neuroma. At last visit treatment consisted of suggestion of a CAM boot however pt declined and said it was difficult to walk in. Pt also to continue utilizing the crutch minimizing her weightbearing on her right foot and continue with the prednisone as well as the Flexeril and discontinue the antibiotic. GUSTAVO assisting with visit: HPI/Rooming: ..... Examination Category Sub-Category Detail Notes Category Not es General Examination Mental status: Cooperative, Oriented to person, place and time, Mood and affect: normal, Judgement and intellect: normal with appropriate response to questions Shoes today: XXXX Exam unchanged from prior visit: with no significant changes in appearance or condition of feet Constitutional / Appearance: No acute di stress , Well nourished, Appropriate personal hygiene
--- OUTSIDE RECORDS SUMMARY | 2024-05-03 20:26 | XMS_ITS ---
Author Organization 1 OF Clarence bean [facility] Address [address] [address] Care Team Providers Care Meat Service Team Member Name Role Phone UNKNOWN, UNKNOWN Primary Care Provider Mumtaz Williamson Unavailable [phone] Allergies No Known Allergies REASON FOR VISIT b/l neuroma Medications Medication SIG (Take, Route, Frequency, Duration) Notes Start Date End Date Status Brimonidine Tartrate 0.2 % INSTILL ONE D ROP IN BOTH EYES TWICE DAILY Ophthalmic for 18 Days Active Ibuprofen 600 MG TAKE 1 TABLET BY THREE TIMES DAILY WITH FOOD for 30 Active Latanoprost PF Activ e Timolol Maleate 0.5 % INSTILL INSTILL ON E DROP INTO BOTH EYES TWICE DAILY DIRECTED. Ophthalmic for 30 Days Active Doxycycline Hyclate 100 MG TAKE 1 CAPSUL E BY MOUTH TWICE A DAY FOR 10 DAYS Oral for 10 Days Active Vital Signs Height 67 in 03/22/2024 Weight 196 lbs 03/22/2024 BMI 30.69 kg/m2 03/22/2024 Encounters Encounter Location Date Provider Diagnosis 1 OF Clarence Guy DPM [facility] [email or web address] [place] [address] 03/22/2024 Mumtaz Orona''s neuroma of right foot G57.61 ; Peripheral neuritis of right foot G57.91 ; Lumbar radiculopathy M54.16 and Right foot pain M79.671 Assessments Encounter Date Diagnosis (ICD Code) Assessment Notes Treatment Notes Treatment Clinical Notes Section Notes 03/22/2024 Orona''s neuroma of right foot (ICD-10 - G57.61) 03/22/2024 Peripheral neuritis of right foot (ICD-10 - G57.91) 03/22/2024 Lumbar radiculopathy (ICD-10 - M54.16) 03/22/2024 Right foot pain (ICD-10 - M79.671) 03/22/2024 Other I did examine and evaluate the patient today. I was pleased to learn that her pain was much improved and and happy that she has been scheduled for the MRI which is on April 11. I did recommend physical therapy however she states that she is already been ordered physical therapy which will begin next Thursday which I do truly believe will help with her pain. In the meantime she is to continue improving hopefully and I would want to see her back after the MRI or sooner should problems arise so that is going to put the appointment right around April 15. Plan Of Treatment Treatment Notes Assessment Notes Other I did examine and ev aluate the patient today. I was pleased to learn that her pain was much improved and and happy that she has been scheduled for the MRI which is on April 11. I did recommend physical therapy however she states that she is already been ordered physical therapy which will begin next Thursday which I do truly believe will help with her pain. In the meantime she is to continue improving hopefully and I would want to see her back after the MRI or sooner should problems arise so that is going to put the appointment right around April 15. Next Appt Details Follow Up: 4 Weeks, Reason: Progress Notes * Radhika DICKSON MDOB:1960 ([age] yo F)Acc No.[id number]:03/22/2024 Progress Notes Patient:?Radhika DICKSON Provider:?Mumtaz Santiago DPM :1960???Age:63 Y???Sex:Female D ate:03/22/2024 Address:[address] [place], [place] [address] Pcp:UNKNOWN UNKNOWN Subjective: * Chief Complaints: * ???B/l neuroma * HPI: ???MA assisting with visit::?HPI/Rooming:?Laurie.?Primary reason for visit::?63 y/o Female RTO for f/u of RT foot pain. At last visit treatment consisted of advice to place pt in a cam walking boot however pt declined. Pt advised to continue to use crutches minimizing her weightbearing on her rt foot. Pt also advised to continue with prednisone as well as her Flexeril and discontinue antibiotic. Pt states medial rt foot swells up and give her problems when she walks. * Medical History:? * Surgical History:?Hernia Rep air sx * Hospitalization/Major Diagno stic Procedure:? * Family History:? stroke, blood disorder. * Medications:?TakingDoxycycli ne Hyclate 100 MG Capsule TAKE 1 CAPSULE BY MOUTH TWICE A DAY FOR 10 DAYS Oral Latanoprost PF Timolol Maleate 0.5 % Solution INSTILL INSTILL ONE DROP INTO BOTH EYES TWICE DAILY DIRECTED. Ophthalmic Brimonidine Tartrate 0.2 % Solution INSTILL ONE DROP IN BOTH EYES TWICE DAILY Ophthalmic Ibuprofen 600 MG Tablet TAKE 1 TABLET BY MOUTH THREE TIMES DAILY WITH FOOD Taking Doxycycline Hyclate 100 MG Capsule TAKE 1 CAPSULE BY MOUTH TWICE A DAY FOR 10 DAYS Oral Taking Latanoprost PF Taking Timolol Maleate 0.5 % Solution INSTILL INSTILL ONE DROP INTO BOTH EYES TWICE DAILY DIRECTED. Ophthalmic Taking Brimonidine Tartrate 0.2 % Solution INSTILL ONE DROP IN BOTH EYES TWICE DAILY Ophthalmic Taking Ibuprofen 600 MG Tablet TAKE 1 TABLET BY MOUTH THREE TIMES DAILY WITH FOOD DiscontinuedMeloxicam 15 MG Tablet 1 tablet Orally once a day Medication List reviewed and reconciled with the patientDiscontinued Meloxicam 15 MG Tablet 1 tablet Orally once a day Medication List reviewed and reconciled with the patient * Allergies:?N.K.D.A.no[Allerg ies Verified] Objective: * Vitals:?Wt:196lbs, Wt-k .9 kg, Ht: 67 in, BMI:30.69Index. * Examination: ???General Examination: ?Constitutional / Appearance: ?No acute distress , Well nourished, Appropriate personal hygiene.?Mental status: ?Cooperative, Oriented to person, place and time, Mood and affect: normal, Judgement and intellect: normal with appropriate response to questions.?Shoes today:?skechers.?Once again ankle joint dorsiflexion measures 0 degrees with the right knee extended and there is pain and recreation of her symptoms with Jose's test and palpation of the bilateral distal third intermetatarsal spaces right greater than left and also decreased range of motion of all joints from the right ankle joint distal with out pain or crepitus today and I appreciate no erythema/edema/increase in calor or trophic or temperature changes noted to the right lower extremity when compared to the left. Once again negative Homans' sign and no warmth or palpable cords evident right lower extremity however there is diffuse pain with palpation to the plantar aspect of the right forefoot in the area of the metatarsal heads. Assessment: * Assessment: 1.?Orona''s neuroma of righ t foot - G57.61???2.?Peripheral neuritis of right foot - G57.91 (Primary)???3.?Lumbar radiculopathy - M54.16???4.?Right foot pain - M79.671??? Plan: * Treatment: * Procedure Codes:? * Preventive Medicine:? ??Counseling:?Care goal follow-up plan:?Above Normal BMI Follow-up?Lifestyle education regarding diet ??Screenings:?FALL RISK SCREENING?Fall Risk Assessment:?No falls in the past year * Follow Up:?4 Weeks * Images: * IST APPRENTICE Sign off status: Completed true * Provider:?Mumtaz Santiago DPM Date:?02/26 Generated for Tammy rutledge/Krista/Lorena on:?05/03/2024 08:26 PM STYLIST APPRENTICE History and Physical Notes * HPI (History of Present Illness) Category Sub-Category Detail Notes Category Not es Primary reason for visit: 63 y/o Female RTO fo r f/u of RT foot pain. At last visit treatment consisted of advice to place pt in a cam walking boot however pt declined. Pt advised to continue to use crutches minimizing her weightbearing on her rt foot. Pt also advised to continue with prednisone as well as her Flexeril and discontinue antibiotic. Pt states medial rt foot swells up and give her problems when she walks. GUSTAVO assisting with visit: HPI/Rooming: Laurie Examination Category Sub-Category Detail Notes Category Not es General Examination Mental status: Cooperative, Oriented to per son, place and time, Mood and affect: normal, Judgement and intellect: normal with appropriate response to questions Once again ankle joint dorsiflexion measures 0 degrees with the right knee extended and there is pain and recreation of her symptoms with Jose's test and palpation of the bilateral distal third intermetatarsal spaces right greater than left and also decreased range of motion of all joints from the right ankle joint distal with out pain or crepitus today and I appreciate no erythema/edema/incr ease in calor or trophic or temperature changes noted to the right lower extremity when compared to the left. Once again negative Homans' sign and no warmth or palpable cords evident right lower extremity however there is diffuse pain with palpation to the plantar aspect of the right forefoot in the area of the metatarsal heads. Shoes today: skechStringbike Exam unchanged from prior visit: Constitutional / Appearance: No acute di stress , Well nourished, Appropriate personal hygiene
--- OUTSIDE RECORDS SUMMARY | 2024-05-03 20:26 | XMS_ITS | Encounter Summary ---
Author Organization [facility] Address [address] [place] [address] Care Team Providers Care Oil Well Pumper Name Role Phone Kiran Winn DO Primary Care Provider Encounter Details Date Type Department Care Team (Late st Contact Info) Description 06/26/2023 External Device Data STL ABSTRACTION Provider, Abstract [...] on filedocumented in this encounter Care Teams Oil Well Pumper Relationship Specialty Start Date End Date Kiran Winn DO [address] [place] [address] PCP - General Family Practice 07/15/16 documented as of this encounter
--- OUTSIDE RECORDS SUMMARY | 2024-05-03 20:26 | XMS_ITS | Encounter Summary ---
Author Organization [facility] Address [address] [place] [address] Care Team Providers Care Fine Jewelry Sales Associate Name Role Phone Kiran Winn DO Primary [...] on filedocumented in this encounter Care Teams Fine Jewelry Sales Associate Relationship Specialty Start Date End Date Kiran Winn DO [address] [email or web address] [address] PCP - General Family Practice 07/15/16 documented as of this encounter
--- OUTSIDE RECORDS SUMMARY | 2024-05-03 20:26 | XMS_ITS | Continuity of Care Document ---
Author Name Deborah Sarah Address [address] [facility] [place] [address] Organization Unknown Address [address] [place] [address] Medications No known medications Problems * calf pain on: 2023-07-14 * Acute sinusitis, unspecified on: 2023-07-03 * Encounter for therapeutic drug level monitoring on: 2023-07-03 * foot pain on: 2023-06-22
--- OUTSIDE RECORDS SUMMARY | 2024-05-03 20:26 | XMS_ITS | Encounter Summary ---
Author Organization [facility] Address [address] [place]: Epic Prelude ADT [place] [address] Care Team Providers Care Chemist Name Role Phone Kiran Winn DO Primary Care Provider Encounter Details Date Type Department Care Team (Latest Contact Info) Description 08/04/2022 Travel Social History Tobacco Use Types Packs/Day Years [...] on filedocumented in this encounter Care Teams Chemist Relationship Specialty Start Date End Date Kiran Winn DO [employer] [place] [address] PCP - General Family Practice 07/15/16 documented as of this encounter
--- OUTSIDE RECORDS SUMMARY | 2024-05-03 20:26 | XMS_ITS | Patient Health Record ---
Author Organization 1 OF Clarence bean [facility] Address [address] [address] [place] [address] Care Team Providers Care Extension Work Director Name Role Phone UNKNOWN, UNKNOWN Primary Care Provider Evi HuynhsayMumtaz Unavailable [phone] Allergies No Known Allergies Reason For Referral No Information Medications Medication SIG (Take, Route, Frequency, Duration) Notes Start Date End Date Status Brimonidine Tartrate 0.2 % INSTILL ONE D ROP IN BOTH EYES TWICE DAILY Ophthalmic for 18 Days Active Ibuprofen 600 MG TAKE 1 TABLET BY RL TH THREE TIMES DAILY WITH FOOD for 30 Active Doxycycline Hyclate 100 MG TAKE 1 CAPSUL E BY MOUTH TWICE A DAY FOR 10 DAYS Oral for 10 Days Active Latanoprost PF Activ e Timolol Maleate 0.5 % INSTILL INSTILL ON E DROP INTO BOTH EYES TWICE DAILY DIRECTED. Ophthalmic for 30 Days Active Social History Tobacco Use: Social History Observation Description Date Details (start date - stop date) Never Smoker NA - NA Tobacco Control (Standard) Question Answer Notes Tobacco use: Nonsmoker Problems Problem Type SNOMED Code ICD Code Onset Dates Problem Status W/U Status Risk Notes Problem [id number] Lumbar radiculopathy (M54.16) Active confirmed Problem Plantar nerve lesion (446513547) Orona''s neuroma of left foot (G57.62) Active confirmed Problem Plantar nerve lesion (948899550) Orona''s neuroma of right foot (G57.61) Active confirmed Problem [id number] Peripheral neuritis of right foot (G57.91) Active confirmed Vital Signs Height 67 in 03/22/2024 Weight 196 lbs 03/22/2024 BMI 30.69 kg/m2 03/22/2024 Encounters Encounter Location Date Provider Diagnosis 1 OF Cla[facility] [address] [place] [address] 01/05/2024 Mumtaz Santiago Orona''s neuroma of left foot G57.62 ; Orona''s neuroma of right foot G57.61 ; Pain in right foot M79.671 and Pain in left foot M79.672 1 OF [facility] [address] [place] [address] [place] [address] 01/19/2024 Mumtaz Pamela Ingrowing nail L60.0 ; Toe pain, left M79.675 ; Orona''s neuroma of left foot G57.62 ; Orona''s neuroma of right foot G57.61 ; Pain in right foot M79.671 and Pain in left foot M79.672 1 OF Cla[facility] [address] [place] [address] 02/17/2024 Mumtaz Santiago Ingrowing nail L60.0 ; Toe pain, left M79.675 ; Orona''s neuroma of left foot G57.62 and Orona''s neuroma of right foot G57.61 1 OF Cla[facility] [address] [address] [place] [address] 03/02/2024 Mumtaz Pamela Orona''s neuroma of right foot G57.61 ; Peripheral neuritis of right foot G57.91 ; Lumbar radiculopathy M54.16 and Right foot pain M79.671 1 OF Cla[facility] Guy [address] [address] [place] [address] 03/22/2024 Mumtaz Pamela Orona''s neuroma of right foot G57.61 ; Peripheral neuritis of right foot G57.91 ; Lumbar radiculopathy M54.16 and Right foot pain M79.671 1 OF Clarence Syed Brooks [address] [place] [address] 12/23/2023 Mumtaz Santiago 1 OF [facility] [address] [address] 02/26/2024 Mumtaz Santiago Assessments Encounter Date Diagnosis (ICD Code) Assessment Notes Treatment Notes Treatment Clinical Notes Section Notes 01/05/2024 Orona''s neuroma of left foot (ICD-10 - G57.62) Patient visit today included a review of medical history, review of systems, physical exam and discussion of exam findings, test results, and discussed the diagnosis of neuroma, potential etiology and treatment options including conservative with padding, inserts, wider shoes, injections, laser treatment, and also discussed surgical resection if conservative measures fail. 01/05/2024 Orona''s neuroma of right foot (ICD-10 - G57.61) 01/19/2024 Ingrowing nail (ICD-10 - L60.0) Discussed ingrown toenail condition and explained in detail conservative and surgical options of care including debridement / slant back procedure vs nail avulsion vs matrixectomy. Discussed pros and cons of each procedure including temporary relief vs more permanent relief with matrixectomy procedure but longer healing time. Patient elected to proceed with avulsion procedure of the affected toe(s). 02/17/2024 Ingrowing nail (ICD-10 - L60.0) 03/02/2024 Orona''s neuroma of right foot (ICD-10 - G57.61) 03/02/2024 Peripheral neuritis of right foot (ICD-10 - G57.91) 03/22/2024 Orona''s neuroma of right foot (ICD-10 - G57.61) 03/22/2024 Peripheral neuritis of right foot (ICD-10 - G57.91) 03/02/2024 Lumbar radiculopathy (ICD-10 - M54.16) 02/17/2024 Toe pain, left (ICD-10 - M79.675) 01/05/2024 Pain in right foot (ICD-10 - M79.671) 01/19/2024 Toe pain, left (ICD-10 - M79.675) 01/19/2024 Orona''s neuroma of left foot (ICD-10 - G57.62) 01/05/2024 Pain in left foot (ICD-10 - M79.672) 02/17/2024 Orona''s neuroma of left foot (ICD-10 - G57.62) 03/02/2024 Right foot pain (ICD-10 - M79.671) 03/22/2024 Lumbar radiculopathy (ICD-10 - M54.16) 03/22/2024 Right foot pain (ICD-10 - M79.671) 02/17/2024 Orona''s neuroma of right foot (ICD-10 - G57.61) 01/19/2024 Orona''s neuroma of right foot (ICD-10 - G57.61) 01/19/2024 Pain in right foot (ICD-10 - M79.671) 01/19/2024 Pain in left foot (ICD-10 - M79.672) 01/05/2024 Other Patient agreed to injection of the neuromas today. Following aseptic prep of the affected areas, a steroid cocktail consisting of 1 cc 1% lidocaine plain, 1 cc 0.5% Marcaine plain, 0.75 cc dexamethasone phosphate and 0.25 cc of Kenalog was infiltrated to the bilateral third intermetatarsal space. I would like her to attempt to utilize the custom orthotics that she brought with the metatarsal pads and to get out of the surgical shoe and out of the sandals and into a good supportive shoe which I would like her to bring with her next visit. I also dispensed meloxicam in which she can take once daily with food 01/19/2024 Other I did examine a nd evaluate the patient today. I did review her previous x-rays and was pleased to learn that her pain was improved with respect to the neuromas but not resolved. She does have a pair of custom orthotics in which she is not utilizing so I have asked her to bring those in with her next time she is here so I can evaluate thos. We may be able to modify those. In the meantime I gave her written and oral instructions regarding posterior calf muscle stretching exercises to perform twice daily and also recommended physical therapy however she declined and once again stressed the importance of not wearing tight shoe gear. I also dispensed a prescription for ibuprofen 600 mg which she can take 3 times daily with food and I will see her back in 2 weeks time or sooner should problems arise for follow-up evaluation 02/17/2024 Other I did examine and evaluate the patient today. The left hallux was cleansed with alcohol after which time a sterile curette was utilized to inspect and probed the border for any debris of which none was found. At this point in time she may discontinue any post procedure instructions and return to regular daily activities as tolerated. I did caution her regarding nail regrowth and possible recurrence of symptoms and need for future treatment. With respect to the bilateral neuromas, I would like her to continue to perform the posterior calf muscle stretching exercises twice daily as well as taking the meloxicam and utilizing wider and extra-depth shoe gear and to rest ice and elevate. The patient agreed to an injection of the neuroma on the right foot today. Following aseptic prep of the affected area a steroid cocktail consisting of 1 cc 1% lidocaine plain, 1 cc 0.5% Marcaine plain, 0.75 cc dexamethasone phosphate and 0.25 cc of Kenalog was infiltrated to the right third distal intermetatarsal space. I did evaluate her custom orthotics and found them to be quite adequate with an incorporated metatarsal pad so I like her to utilize those as well. I will see her back in clinic in 2 weeks time or sooner should problems arise for follow-up evaluation 03/02/2024 Other I did examine a nd evaluate the patient today. X-rays were obtained and reviewed. I am not appreciating any evidence of CRPS so I did recommend that we place her into a walking boot and we attempted that however she had more pain than she had without it. She is to continue utilizing the crutch minimizing her weightbearing on her right foot and continue with the prednisone as well as the Flexeril and discontinue the antibiotic. Apparently there is a MRI of her back that potentially is in the process of being ordered but I also recommended that we order an EMG/NCVS as well. I am not confident that the pain that she is experiencing is coming from the injection to the neuroma. I also discussed physical therapy however I believe that might be too early for that since she is in so much pain. I would like her to contact us when she gets scheduled for the MRI and if we can get her scheduled for an EMG/NCVS before the MRI I will attempt to do that. I will see her back in clinic in 2 weeks time or sooner should problems arise for follow-up evaluation and also did recommend placing her on gabapentin however she states that the cyclobenzaprine seems to be helping. 03/22/2024 Other I did examine a nd evaluate the patient today. I was pleased [...] right around April 15. Plan Of Treatment No Information Insurance Providers Payer Name Payer Address Payer Phone Subscriber Number Group Number Insured Name Patient Relationship to Insured Coverage Start Date Coverage End Date [employer] [address] [place] [address] [id number] Radhika Goetz Self - patient is the insured Medical (General) History Medical History History ICD Code Arthritis depression hernia Surgical History Surgery Date(Month/Year) Hernia Repair sx
--- OUTSIDE RECORDS SUMMARY | 2024-05-03 20:27 | XMS_ITS | Encounter Summary ---
Author Organization [facility] Address [address] [place] [address] Care Team Providers Care Hand Reamer Name Role Phone Kiran Winn DO Primary Care Provider Encounter Details Date Type Department Care Team (Late st Contact Info) Description 07/15/2016 [facility] [address] [facility] [address] [place] [address] Mirza Tijerina MD [address] [facility] [address] [facility] [place] [address] Social History Tobacco Use Types Packs/Day Years Used Date Smoking Tobacco: Never Assessed Sex and Gender Information Value Date Recorded Sex Assigned at Not on file Gender Identity Not on file Sexual Orientation Not on file documented as of this encounter Plan of Treatment Not on file documented as of this encounter Visit Diagnoses Not on filedocumented in this encounter Care Teams Hand Reamer Relationship Specialty Start Date End Date Kir[place] [address] PCP - General Family Practice 07/15/16 documented as of this encounter
--- OUTSIDE RECORDS SUMMARY | 2024-05-03 20:27 | XMS_ITS | Encounter Summary ---
Author Organization [facility] Address [address] [place] [address] Care Team Providers Care Spinner Operator Name Role Phone Winn Kiran Haq DO Primary Care Provider Reason for Visit * Auth/Cert Specialty Diagnoses / Procedures Referred By Jono mason Referred To Contact Gastroenterology Diagnoses Colon cancer screening Colon cancer screening [Z12.11] Procedures COLONOSCOPY [facility] [address] [place] [address] Referral ID Status Reason Start Date Expiration Date Visits Re quested Visits Authorized [id number] 1 1 Encounter Details Date Type Department Care Team (Latest Contact Info) Description 12/08/2016 9:59 AM CDT - 12/08/2016 1:08 PM CDT Hospital Encounter [facility] [address] [place] [address] [place] [address] Mirza Tijerina MD [address] [facility] [address] [facility] [place] [address] Colon cancer screening Discharge Disposition: Home or Self Care Social History Tobacco Use Types Packs/Day Years [...] Reading Time Taken Comments Blood Pressure 103/52 12/08/2016 12:19 PM CDT Pulse 60 12/08/2016 12:19 PM CDT Temperature 36.4 ??C (97.6 ??F) 12/08/2016 11:58 AM C DT Respiratory Rate 18 12/08/2016 12:19 PM CDT Oxygen Saturation 100% 12/08/2016 12:19 PM CDT Inhaled Oxygen Concentration - - Weight 81.6 kg (180 lb) 12/08/2016 10:46 AM CDT Height 170.2 cm (5' 7 ) 12/08/2016 10:46 AM CDT Body Mass Index 28.19 12/08/2016 10:46 AM CDT documented in this encounter Discharge Instructions * Discharge Instructions* Mirza Tijerina MD - 12/08/2016 12:00 PM CDT Instructions after Colonoscopy After a colonoscopy it is normal to experience some minor ???gas pains?? because of the air that was introduced to your colon during the procedure. Tylenol will help to relieve any discomfort. You may not have a bowel movement for 1-3 days because of the colonoscopy prep. This is normal. DO NOT drink alcohol until tomorrow. DO NOT drive, operate machinery, make critical decisions until tomorrow. Limit activities that require coordination or balance for 24 hours. Resume your previous diet unless otherwise instructed. Resume your previous medications unless otherwise instructed. Notify your physician if you develop any of the following: ??? Severe pain ??? Fever of 101 degrees F ??? Large amount of bleeding, passing large blood clots, or black tarry stools ??? Redness or soreness at the IV site A repeat colonoscopy is recommended in 10 years. Sooner assessment may be proper if there are new symptoms or if there is new family history of colon polyps or colon cancer. Please call should this come to light. Office Exchange: documented in this encounter Medications at Time of Discharge Medication Sig Dispensed Refills Start Date End Date FLUoxetine (PROzac) 20 mg capsule Take 20 mg by mouth daily. documented as of this encounter H&P Notes * Mirza Tijerina MD - 12/08/2016 11:33 AM CDT This is a 56 y.o. female who presents for colonoscopy Pre-procedure indication: screen Important co-morbidity: No Diarrhea: No Anti-coagulants/Anti-platelet agents: No Relevant surgical history: C-scerion Examination: Wt Readings from Last 3 Encounters: 12/08/16 81.6 kg (180 lb) Temp Readings from Last 3 Encounters: 12/08/16 97.3 ??F (36.3 ??C) (Temporal) BP Readings from Last 3 Encounters: No data found for BP Pulse Readings from Last 3 Encounters: 12/08/16 61 General : NAD Body habitus: Overweight Mental status: NL Airway: UNderbite Lungs: Clear Cardiac: Reg Abdomen: bland Consent: I have reviewed the nature, purpose, limits, benefits, and alternatives of colonoscopy with possible biopsy/intervention with the patient who expresses understanding and agrees to proceed. Risks of immediate or delayed serious complication may be about 1/1,200 procedures and these complications may require hospitalization, medical therapy, blood transfusion, surgery, other interventions. Some experts recommend that if very large polyps are seen that removal be deferred for another procedure so that a separate consent may be obtained. I will remove large polyps to the best of my ability and safety of patient and explained that risks may be increased if aggressive intervention needed. But obvious advantage in limited number of procedures. Prior to Admission Medications Prescriptions Last Dose Informant Patient Reported? Taking? FLUoxetine (PROzac) 20 mg capsule 12/07/2016 at Unknown time Yes Yes Sig: Take 20 mg by mouth daily. Facility-Administered Medications: None No Known Allergies Past Medical History: Diagnosis Date ??? Depression documented in this encounter Procedure Notes * Mirza Tijerina MD - 12/08/2016 12:00 PM CDTAssociated Order(s): GI REPORT [facility] Endoscopy Patient Name: Radhika Goetz Procedure Date No Time: 12/08/2016 Date of : 1960 Admit Type: Outpatient Attending MD: Mirza Tijerina MD Procedure: Colonoscopy Indications: Screening for colorectal malignant neoplasm Providers: Mirza Tijerina MD Referring MD: Kiran Winn DO Medicines: TIVA Complications: No immediate complications. Procedure: Informed consent was obtained for the procedure, including moderate sedation after risks were discussed. Based on the pre-procedure assessment, including review of the patient?s medical history, medications, allergies, and review of systems, the patient was deemed to be an appropriate candidate for sedation. A timeout was performed. Continuous ECG monitoring, pulse oximetry, blood pressure monitoring, and direct observation were performed. The scope was introduced through the anus and advanced to the terminal ileum. The colonoscopy was performed without difficulty. The patient tolerated the procedure well. The quality of the bowel preparation was good. Estimated Blood Loss: Estimated blood loss: none. Findings: Non-bleeding internal hemorrhoids were found during retroflexion. The hemorrhoids were moderate. The exam was otherwise without abnormality. Impression: - Non-bleeding internal hemorrhoids. - The examination was otherwise normal. - No specimens collected. Recommendation: - Average risks colon and rectal cancer screening. Current guidelines call for a repeat study in 10 years. Sooner colonoscopy may be proper for symptoms or a family history of polyps or cancer. Mirza Tijerina MD 12/08/2016 12:00 PM This report has been signed electronically. Number of Addenda: 0 [address] [facility] [place] [address] documented in this encounter OR Notes * Komal-OP - Cheryl Quintana RN - 12/08/2016 10:41 AM CDT Routine Pre-Anesthesia Protocol for GI Lab Procedures [facility] ORDERS ARE ENTERED ???PER PROTOCOL?? NURSING ORDERS: Monitoring: o Obtain and record vital signs. o Continuous vital signs (Non-invasive blood pressure, pulse oximetry and ECG) for all inpatients and all patients currently taking beta-blockers. o Place #20 gauge IV in non-dominant, non-operative or otherwise excluded upper extremity o Contact responsible anesthesiologist if recommending use of a #22 gauge IV o See medication section for local Anesthetic for use to initiate IV Laboratory Orders: Screening Protocol o Urine bHCG (serum if necessary) for females of menses, or age greater than 12 years. ?? Point of Care Testing: FOR PATIENTS WITH A HISTORY OF DIABETES, RECEIVING INSULIN, OR EXHIBITINGSIGNS AND SYMPTOMS OF HYPOGLYCEMIA. o POC glucose on initial assessment o POC glucose every 4 hours if NPO o POC glucose within 30 minutes of discharge or transfer to another unit (the time based intra-procedure POC check may be deferred during short procedures at the discretion of the provider) o POC for any patient exhibiting signs and symptoms of hypoglycemia o If POC Glucose results are critical, do not delay treatment. If appropriate, may confirm POC with: Nursing Only [id number] (this lab can be obtained at no cost to the patient when confirming a criticalhigh or critical low POC glucose Medication Orders o Local Anesthetic for use to initiate IV line Lidocaine 2% 0.3ml intradermal ONE TIME to numb are IV catheter insertion PRN IV Fluid: Adult patients (age 18 years or greater) o Lactated Ringers solution to infuse at 125 mL/hour, may discontinue upon discharge from procedurearea. o Patient specific modification as indicated: - If patient is found to have serum creatinine > 2 or history of renal failure, RN may change fluid to NS at 10ml/hr Contact provider to consider dextrose containing fluids for: o NPO patients who have received PO or injectable antihyperglycemic agents and glucose is less [id number] mg/dl o NPO patients who have NOT received PO or injectable antiHYPERglycemic agents and POC glucose is less than 70 mg/dL. o When receiving report on an inpatient, confirm if patient is receiving dextrose containing fluidsto prevent hypoglycemia. Communicate with the anesthesiologist and request glucose containing fluids be continued or added to intraoperative fluids. o Any time a patient???s enteral or parenteral nutrition is interrupted for longer than four hours and POC glucose or serum glucose is less than 100 mg/dL contact provider for dextrose containing fluids o Notify provider for any POC glucose or serum glucose less than 70 mg/dL RESCUE MEDICATION ORDERS - entered by the Pharmacist horse breaker o Meter Glucose less than 70, patient CONSCIOUS, able to swallow and allowed oral intake: ??? Give carbohydrates orally, choose one: - Give 15 gram food choice such as: Regular soda (6 oz), Apple juice (4 oz), Sugar, 1 tablespoon (4packets or 5 cubes), or 1 container regular Jello. - Reminder: avoid mixing sugar into a drink such as soda or juice, as this will constitute 30 gramsof carbs with the sugar and drink. ??? Recheck POC Glucose: - Recheck POC Glucose every 15 minutes and re-treat with 15 grams of carbohydrates until blood glucose is 70 mg/dL or greater. Once POC glucose result is 70 mg/dL or greater after hypoglycemic episode, POC glucose to be checked every 30 minutes for 3 consecutive occurrences with results of 70 mg/dL or greater, then resume previous POC Glucose check orders. o Meter Glucose less than 70, IV Access, patient UNCONSCIOUS, unable to swallow and/or NPO ??? Give dextrose IV: - Dextrose 50%, give 12.5grams IV push ONE TIME ??? Recheck POC Glucose: - Recheck POC Glucose and re-treat every 15 minutes with 12.5 g of Dextrose 50%. Once POC Glucose 70 mg/dL or greater after hypoglycemic episode, POC glucose to be checked every 30 minutes for 3 occurrences, then resume previous POC Glucose check orders o Meter Glucose less than 70, NO IV Accessible, patient UNCONSCIOUS, unable to swallow and/or NPO ??? Give glucagon IM - Glucagon (GLUCAGEN) 1 mg IM ONE TIME - Recheck POC Glucose: o Recheck blood glucose 15 minutes after administration of glucagon and re-treat accordingly. Afteradministration of glucagon is complete insert peripheral IV and notify physician. o Once POC Glucose result is 70 mg/dL or greater after hypoglycemic episode, POC glucose to be checked every 30 minutes for 3 consecutive occurrences with results 70 mg/dL or greater, then resume previous POC orders After Hypoglycemic Symptoms Subside and NOT NPO, Give a Snack o SNACK CHOICES: Should include 1 carb and 1 fat servin saltine crackers and 2 teaspoons peanutbutter; or 1 slice of bread and 2 teaspoons peanut butter; or 1 oz cheese and 6 saltine crackers; or 1 cup 2% milk and 6 saltine crackers. Initiating Department(s): 01/2009 OR; Anesthesia; Nursing; GI Lab Reviewed: 03/27/2012, 10/2014 Revised: 03/27/2012, 11/2014 Approved by: Medical Executive Committee, Nursing and Pharmacy and Therapeutics Date: 06/2016 documented in this encounter Plan of Treatment Not on file documented as of this encounter Procedures Procedure Name Priority Date/Time Associated Diagnosis Comments GI REPORT 12/08/2016 12:01 PM CDT COLONOSCOPY 12/08/2016 11:28 AM CDT Colon cancer screening documented in this encounter Results * GI REPORT (12/08/2016 12:01 PM CDT) Narrative Procedure Note Mirza Tijerina MD - 12/08/2016 12:00 PM CDT [facility] Endoscopy Patient Name: Radhika Goetz Procedure Date No Time: 12/08/2016 Date of : 1960 Admit Type: Outpatient Attending MD: Mirza Tijerina MD Procedure: Colonoscopy Indications: Screening for colorectal malignant neoplasm Providers: Mirza Tijerina MD Referring MD: Kiran Winn DO Medicines: TIVA Complications: No immediate complications. Procedure: Informed consent was obtained for the procedure, including moderate sedation after risks were discussed. Based on the pre-procedure assessment, including review of the patient?s medical history, medications, allergies, and review of systems, the patient was deemed to be an appropriate candidate for sedation. A timeout was performed. Continuous ECG monitoring, pulse oximetry, blood pressure monitoring, and direct observation were performed. The scope was introduced through the anus and advanced to the terminal ileum. The colonoscopy was performed without difficulty. The patient tolerated the procedure well. The quality of the bowel preparation was good. Estimated Blood Loss: Estimated blood loss: none. Findings: Non-bleeding internal hemorrhoids were found during retroflexion. The hemorrhoids were moderate. The exam was otherwise without abnormality. Impression: - Non-bleeding internal hemorrhoids. - The examination was otherwise normal. - No specimens collected. Recommendation: - Average risks colon and rectal cancer screening. Current guidelines call for a repeat study in 10 years. Sooner colonoscopy may be proper for symptoms or a family history of polyps or cancer. Mirza Tijerina MD 12/08/2016 12:00 PM This report has been signed electronically. Number of Addenda: [address]; [place] [address] Mirza Tijerina MD GI PROCEDURE ORDERAB LES documented in this encounter Visit Diagnoses Not on filedocumented in this encounter Administered Medications Inactive Administered Medications - up to 3 most recent administrations Medication Order MAR Action Action Date Dose Rate Site lactated Ringers solution IV, at 125 mL/hr, PRE-PROCEDURE CONTINUOUS, Starting on Thu12/08/16 at 1045, Until Thu12/08/16 at 1514, Routine, Pre-Procedure New Bag 12/08/2016 10:50 AM CDT 1 25 mL/hr documented in this encounter Active and Recently Administered Medications Times are shown in CDT. Continuous Medication Order 12/06/2016 12/07/2016 12/08/2016 lactated Ringers solution IV, at 125 mL/hr, PRE-PROCEDURE CONTINUOUS, Starting on Thu12/08/16 at 1045, Until Thu12/08/16 at 1514, Routine, Pre-Procedure 1050 (New Bag - Prov ider: Cheryl Quintana RN)1200 (Fluid Volume - Provider: ELISHA Klein) documented in this encounter Care Teams Spinner Operator Relationship Specialty Start Date End Date Kiran Winn DO [address] [place] [address] PCP - General Family Practice 07/15/16 documented as of this encounter
--- OUTSIDE RECORDS SUMMARY | 2024-05-03 20:27 | XMS_ITS | Encounter Summary ---
Author Organization [facility] Address [address] [place] [address] Care Team Providers Care Rattan Worker Name Role Phone Kiran Winn DO Primary Care Provider Reason for Visit * Reason Onset Date Comments Medication Refill 07/16/2016 Encounter Details Date Type Department Care Team (Late st Contact Info) Description 07/16/2016 Refill [facility] G[facility]enterology [facility] [address] [facility] [address] [place] [address] Mirza Tijerina MD [address] [facility] [address] [facility] [place] [address] Social History Tobacco Use Types [...] on filedocumented in this encounter Care Teams Rattan Worker Relationship Specialty Start Date End Date Kiran Winn [place] [address] PCP - General Family Practice 07/15/16 documented as of this encounter
--- OUTSIDE RECORDS SUMMARY | 2024-05-03 20:27 | XMS_ITS | Encounter Summary ---
Author Organization [facility] Address [address] [place] [address] Care Team Providers Care Nail Making Machine Tender Name Role Phone Kiran Winn Primary Care Provider Reason for Visit * Reason Onset Date Comments Procedure 07/16/2016 Encounter Details Date Type Department Care Team (Late st Contact Info) Description 07/16/2016 Telephone [facility] Gastroenterology [facility] [address] [facility] [address] [place] [address] Remedios Tijerina MD [address] [facility] [address] [facility] [place] [address] Procedure Social History Tobacco Use Types Packs/Day Years Used Date Smoking Tobacco: Never Assessed Sex and Gender Information Value Date Recorded Sex Assigned at Not on file Gender Identity Not on file Sexual Orientation Not on file documented as of this encounter Miscellaneous Notes * Telephone Encounter - Ajit Johnston - 11/06/2016 10:42 AM CDT RESCHEDULED PROCEDURE TEST: COLON REASON FOR RESCHEDULE: WORK CONFLICT OLD APPOINTMENT PHYSICIAN: TEJA DATE AND TIME: 11/10/2016 @ 9:40 AM LOCATION: [facility] [place] APPOINTMENT PHYSICIAN: TEJA DATE AND TIME: 12/08/2016 @ 11:00 AM LOCATION: [facility] PREP: SAME * Telephone Encounter - Ajit Johnston - 09/05/2016 10:39 AM CDT RESCHEDULED PROCEDURE TEST: COLON REASON FOR RESCHEDULE: PATIENT HAS STREP OLD APPOINTMENT PHYSICIAN: TEJA DATE AND TIME: 09/08/2016 @ 9:40 AM LOCATION: [facility] NEW APPOINTMENT PHYSICIAN: TEJA DATE AND TIME: 11/10/2016 @ 9:40 AM LOCATION: [facility] PREP: SAME * Telephone Encounter - Ajit Johnston - 07/16/2016 9:57 AM CDT Rdahika Goetz is a 55 y.o. female 1960 Procedure: colonoscopy Diagnosis: SCREENING Provider: REMEDIOS TIJERINA Date and Time: 09/08/2016 @ 9:40 AM Location: [facility] [place] Given: COLYTE Pre-cert Required? NO Patient Transport: (Friend/Family Member/Transport Service/Undecided) PCP: Kiran Winn, Referring Provider: (If different than PCP) Do any of the following factors below apply to this patient? ELABORATE POSITIVE ANSWERS WITH DETAIL (who, what, when, where) Red denotes AC required for positive answers. Red Bold indicates patient would require hospital setting for positive answers unless flagged with an asterisk. (Asterisk indicates reverse would be true) Has patient previously been seen by a [facility] clinical program coordinator in an inpatient or outpatientsetting? (If yes please note MD) no Previous Endoscopy (Colon, EGD, ERCP EUS): (IF YES TO COLON PLEASE USE .OP30 SMARTPHRASE) no History of issues following above procedures bleeding etc? no History of esophagectomy, gastrectomy, or bariatric surgery? no History of head/neck cancer, surgery or radiation? no History of gastric outlet obstruction? no Do you have sleep apnea? no Do you have COPD? no Are you on Oxygen at home? no Personal or family history of difficulty with sedation or anesthesia? no Do you have a pacemaker, Defibrillator, Stent, Bypass or heart valve replacement? (AICD) no (Mechanical Heart Valves require hospital setting) Have you been diagnosed with CHF (Congestive Heart Failure), CAD Coronary Artery Disease or Unstable Angina? no History of Heart Attack? no Any heart condition or history of heart surgeries not previously listed? (Valvular disorders require AC) no History of a stroke or seizure disorder? no Current history of neurological conditions? no History of Kidney Dialysis or renal failure no History of Cirrhosis or Esophageal Varices? no History of MRSA or VRE? no Sickle Cell Disease (not just trait)? no Is patient ? no *Is patient able to perform routine daily activities without assistance? yes *Is patient mentally competent to provide informed consent? yes (If no, document who will be able to consent for patient and their title I.E. POA) Is patient taking a blood thinner? no (If yes, elaborate why patient is on this medication) (Follow medication protocol) Anesthesia Consult Requested? no Patients BMI ( >40 need review, NO patients with BMI >50 or <16) Height: 5'7 Weight: 183 BMI: 28.7 Social History Substance Use Topics ??? Smoking status: Not on file ??? Smokeless tobacco: Not on file ??? Alcohol use Not on file No Known Allergies Held Medications: NONE Current Outpatient Prescriptions Medication Sig Dispense Refill ??? FLUoxetine (PROzac) 20 mg capsule Take 20 mg by mouth daily. No current facility-administered medications for this visit. documented in this encounter Plan of Treatment Not on file documented as of this encounter Visit Diagnoses Not on filedocumented in this encounter Care Teams Nail Making Machine Tender Relationship Specialty Start Date End Date Kiran Winn DO [address] [place] [id number] PCP - General Family Practice 07/15/16 documented as of this encounter
--- OUTSIDE RECORDS SUMMARY | 2024-05-03 20:27 | XMS_ITS | Encounter Summary ---
Author Organization [facility] Address [address] [place] [address] Care Team Providers Care Deep Sea Diver Name Role Phone Kiran Winn DO Primary Care Provider Reason for Visit * Auth/Cert Specialty Diagnoses / Procedures Referred By Jono mason Referred To Contact Gastroenterology Diagnoses Colon cancer screening Colon cancer screening [Z12.11] Procedures COLONOSCOPY [facility] [address] [place] [address] Referral ID Status Reason Start Date Expiration Date Visits Re quested Visits Authorized [id number] 1 1 Encounter Details Date Type Department Care Team (Late st Contact Info) Description 12/08/2016 11:00 AM CDT - 12/08/2016 11:40 AM CDT [facility] [address] [place] [address] [place] [address] Mirza Tijerina MD [address] [facility] [address] [facility] [place] [address] COLONOSCOPY Surgery Details Date/Time Status Location OR Service Patient Class Case Class Case Type Trauma Case? 12/08/2016 11:00 AM Posted [facility] GI 02 Gastroenterology Outpatient Elective No Panel 1 Procedure LRB Anes Op Region Wound Class Comments COLONOSCOPY N/A General Anus Surgeon Surgeon Role Service Panel Mirza Tijerina MD Primary Gastroenterology 1 documented in this encounter Social History Tobacco [...] Sign Reading Time Taken Comments Blood Pressure - - Pulse 61 12/08/2016 10:46 AM CDT Temperature 36.3 ??C (97.3 ??F) 12/08/2016 10:46 AM C DT Respiratory Rate 16 12/08/2016 10:46 AM CDT Oxygen Saturation 100% 12/08/2016 10:46 AM CDT Inhaled Oxygen Concentration - - Weight [...] 12/08/2016 12:00 PM CDTAssociated Order(s): GI REPORT [facility] Endoscopy Patient Name: Radhika [...] signed electronically. Number of Addenda: 0 [phone] [facility]; [place] [address] documented in this encounter OR Notes * Komal-OP - Cheryl Quintana RN - 12/08/2016 10:41 AM CDT Routine Pre-Anesthesia Protocol for GI Lab Procedures [facility] ORDERS ARE ENTERED ???PER PROTOCOL?? NURSING ORDERS: [...] appropriate, may confirm POC with: Nursing Only [id number] (this lab can be obtained at no [...] injectable antihyperglycemic agents and glucose is less [id number] mg/dl o NPO patients who have NOT [...] MEDICATION ORDERS - entered by the Pharmacist chemical operator o Meter Glucose less than 70, patient [...] Tijerina MD - 12/08/2016 12:00 PM CDT [facility] Endoscopy Patient Name: Radhika [...] electronically. Number of Addenda: [address]; [place] [address] Mirza Tijerina MD GI PROCEDURE ORDERAB LES documented in this encounter Visit Diagnoses Diagnosis Colon cancer screening Special screening for malignant neoplasms, colon documented in this encounter Administered Medications Inactive [...] Klein) documented in this encounter Care Teams Deep Sea Diver Relationship Specialty Start Date End Date Kiran Winn DO [address] [place] [address] PCP - General Family Practice 07/15/16 documented as of this encounter
--- OUTSIDE RECORDS SUMMARY | 2024-05-03 20:40 | XMS_ITS | Clinical Summary ---
Author Organization [facility] Address [address] [place] [address] Phone Care Team Providers Care Room Attendant Name Role Phone Kiran Winn Primary Care Provider Allergies No known active allergies Medications Medication Sig Dispensed Refills Start Date End Date Status FLUoxetine (PROzac) 20 mg capsule Take 20 mg by mouth daily. Active Active Problems No known active problems Family History Medical History Relation Name Comments Colon Cancer Neg Hx Social History Tobacco Use Types Packs/Day Years Used Date Smoking Tobacco: Never Smokeless Tobacco: Never Tobacco Cessation:Counseling Given: Not Answered Alcohol Use Standard Drinks/Week Comments No 0 (1 standard drink = 0.6 oz pur e alcohol) Sex and Gender Information Value Date Recorded Sex Assigned at Not on file Gender Identity Not on file Sexual Orientation Not on file Last Filed Vital Signs Vital Sign Reading Time Taken Comments Blood Pressure 103/52 08/04/2022 4:20 PM CDT Pulse 60 12/08/2016 12:19 PM [...] Mass Index 28.19 08/04/2022 4:20 PM CDT Plan of Treatment Health Maintenance Due Date Last Done Comments DTAP/TDAP/TD VACCINES (1 - Tdap) 1977 FIT-DNA Q 3 years 10/02/2003 FIT/FOBT Q 1 year 10/02/2003 Flex Sig/CT Colonography Q 5 years 10/02/2003 ZOSTER VACCINE (1 of 2) 2008 BREAST CANCER SCREENING 05/05/2023 05/05/19 23, 11/02/2018, 07/23/2016 PNEUMOCOCCAL VACCINE 65+ YEA RS (1 of 1 - PCV) 10/02/2023 INFLUENZA VACCINE (#1) 2023 COLORECTAL SCREENING 12/08/2026 12/08/2016 Colorectal Cancer Screening 12/08/2026 RSV VACCINE (60+ or ) (1 - 1-dose 75+ series) 2033 OSTEOPOROSIS SCREENING Completed 05/05/2022, 2022 Advance Directives For more information, please contact: [phone] * Full Code (Latest Code Status on File) Date Activated Date Inactivated Comments 12/08/2016 11:06 AM 12/08/2016 3:09 PM * Full Code Date Activated Date Inactivated Comments 12/08/2016 10:42 AM 12/08/2016 11:06 AM Care Teams Room Attendant Relationship Specialty Start Date End Date Kiran Winn DO [address] [place] [id number] PCP - General Family Practice 07/15/16
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
== END 2024-04-26 10:29 | disposition home or self-care (01) ==
PROVIDERS: Emergency Provider Nurse Practitioner; PCP Nurse Practitioner
DX: R09.82 Postnasal drip (principal); J01.90 Acute sinusitis, unspecified
CPT/HCPCS: 99211; G0463